=== PATIENT | female | born 1975 | race Caucasian/White ===

== ENCOUNTER 2016-04-08 21:11 | Emergency (ER) | payer OTHER ==
[2016-04-08 21:38] LABS: MANUAL DIFF NEEDED? NO; URINE CULTURE NEEDED? NO; URINE MICRO REVIEW NEEDED? NO; URINE SOURCE CLEAN CATCH
[2016-04-08 21:42] LABS: BASO% 0.7 % (0.0-0.8); EOS# 0.12 X1000 (0.0-0.7); EOS% 1.6 % (0.0-10.0); HEMATOCRIT 41.5 % (37.0-47.0); HEMOGLOBIN 13.4 g/dL (12.0-16.0); LYMPH# 2.98 X1000 (1.2-3.4); LYMPH% 38.9 % (20.5-51.1); MCH 25.7 PG (27-31); MCHC 32.3 g/dL (33-37); MCV 79.7 FL (81-99); MONO% 7.8 % (1.7-9.3); MPV 10.2 FL (7.4-10.4); PLT 258 X1000 (130-400); RBC 5.21 XMIL (4.2-5.4)
[2016-04-08 21:43] LABS: BILIRUBIN URINE NEGATIVE (NEGATIVE); BLOOD URINE NEGATIVE (NEGATIVE); COLOR STRAW; GLUCOSE URINE >1000 mg/dL (NEGATIVE); LEUKOCYTES URINE NEGATIVE (NEGATIVE); NITRITE URINE NEGATIVE (NEGATIVE); PROTEIN URINE NEGATIVE (NEGATIVE); SP GRAVITY URINE 1.027; TURBIDITY URINE CLEAR (CLEAR); UR EPITHELIAL CELLS <10 /HPF (<10); URINE BACTERIA NEGATIVE /HPF; URINE RBC <10 /HPF (<10); URINE WBC <10 /HPF (<10); UROBILINOGEN URINE NORMAL (NORMAL)
[2016-04-08 22:05] LABS: UR AMPHETAMINES QUAL NONE DETECTED (NONE DETECT); UR BARBITUATES QUAL NONE DETECTED (NONE DETECT); UR BENZODIAZEPIN QUAL NONE DETECTED (NONE DETECT); UR CANNABINOIDS QUAL NONE DETECTED (NONE DETECT); UR COCAINE QUAL NONE DETECTED (NONE DETECT); UR METHADONE QUAL NONE DETECTED (NONE DETECT); UR OPIATES QUAL NONE DETECTED (NONE DETECT); UR OXYCODONE QUAL NONE DETECTED (NONE DETECT); UR PCP QUAL NONE DETECTED (NONE DETECT)
[2016-04-08 22:19] LABS: AGAP 17; ALBUMIN 3.7 g/dL (3.5-5.0); ALKALINE PHOSPHATASE 118 U/L (32-104); BUN 10 mg/dL (8-22); CHLORIDE 91 mmol/L (98-107); COSMO 291; GOT 29 U/L (10-30); GPT 37 U/L (10-36); POTASSIUM 4.6 mmol/L (3.5-5.1); SODIUM 129 mmol/L (136-145); TCO2 21 mmol/L (25-35); TOTAL PROTEIN 7.4 g/dL (6.3-8.3)
[2016-04-08 22:21] LABS: FREE T4 0.9 ng/dL (0.93-1.70)
[2016-04-08] MEDS ORDERED: HUMULIN R IV ONE (22:21)
[2016-04-08] MEDS ORDERED: NS 1,000 ML IV ONE (22:21)
--- NOTE | 2016-04-08 22:21 | PROVIDER DOCUMENTATION ---
Addendum entered and electronically signed by Tian Aj Scribe 04/10/16 17 :36: Departure - Departure Time of Disposition Order: 17:35 DIAGNOSIS: Poorly controlled diabetes mellitus, Hyperglycemia, Suicidal ideations, Suicidal intent, Homicidal behavior Disposition: [facility] Certified Medical Emergency: Emergent Condition: Stable Referrals: Vin Jones MD [Primary Care Provider] - Original Note: HPI-Psychological Disorder - General Source: patient <Simeon Gomez - Last Filed: 04/09/16 16:35> <Tracie Burrell - Last Filed: 04/09/16 17:22> - General Chief Complaint: Psych Stated Complaint: SI Time Seen by Provider: 04/08/16 21:41 Allergies/Adverse Reactions: Patient Allergies Allergy/AdvReac Type Severity Reaction Status Date / Time Iodinated Contrast Media - Allergy DIZZINESS Verified 04/08/16 21:41 Oral and Home Medications: Metformin HCl [Glumetza] 1,000 mg PO BID 11/30/12 Fluoxetine [Prozac] 60 mg PO DAILY 12/08/14 Levothyroxine [Synthroid] 75 microgm PO DAILY 12/08/14 Amlodipine Besylate [Norvasc] 5 mg PO DAILY 08/28/15 Apixaban [Eliquis] 5 mg PO BID 08/28/15 Atorvastatin Calcium [Lipitor] 20 mg PO DAILY 08/28/15 Ferrous Sulfate 1 tab PO TID 08/28/15 Lisinopril 40 mg PO DAILY 08/28/15 Topiramate [Topamax] 50 mg PO BID 08/28/15 Aripiprazole [Abilify] 2 mg PO DAILY 02/06/16 Insulin Glargine [Lantus] 60 unit SUBQ QHS 02/06/16 - History of Present Illness-Psych Nature of Presenting Problem: Pt is a 40 y/o F c chief complaint of suicidal thoughts with plan and auditory hallucinations x 1 day. Pt has a h/o depression but is not compliant c her anti- depression meds. Pt has a h/o poorly controlled diabetes, constipation, hypertension. On arrival, pt is in no pain or distress. She states that she plans to drive her car into another vehicle to kill herself. (Simeon Gomez) Review of Systems - Adult - REVIEW OF SYSTEMS - ADULT Constitutional: reports: no symptoms reported. denies: chills, fatique Eyes: reports: no symptoms reported. denies: blurred vision, double vision Ears, Nose, Mouth & Throat: reports: no symptoms reported. denies: ear pain, nose pain Cardiovascular: reports: no symptoms reported. denies: chest pain, irregular heart rate Respiratory: reports: no symptoms reported. denies: cough, shortness of breath Gastrointestinal: reports: no symptoms reported. denies: abdominal pain, nausea Genitourinary: reports: no symptoms reported. denies: dysuria, frequent UTI's, hematuria Musculoskeletal: reports: no symptoms reported. denies: bone pain, joint pain Integumentary: reports: no symptoms reported. denies: hives, itching, rash Neurological: reports: no symptoms reported. denies: numbness, paresthesia Psychiatric: reports: depression. denies: anxiety, emotional problems Endocrine: reports: no symptoms reported. denies: cold intolerance, heat intolerance Hematologic/Lymphatic: reports: no symptoms reported. denies: blood clots, low blood count Allergic/Immunologic: reports: no symptoms reported. denies: allergic reactions , food allergy All Other Systems: Reviewed and Negative <Simeon Gomez - Last Filed: 04/09/16 16:35> Past History - Adult - PAST MEDICAL HISTORY-ADULT Review of Records: reports: Old Records Reviewed, Nursing Assessment Review, Medications Reviewed, Social history reviewed & non-contributory. Major Childhood Illnesses: reports: denies history Cardiovascular: reports: blood clots (with PE's), HTN, hyperlipidemia Respiratory: reports: denies history Gastrointestinal: reports: denies history Obstetrical/Gynecological: reports: denies history Genitourinary: reports: denies history Musculoskeletal: reports: denies history Neurological: reports: CVA, headaches/migraines, TIA Psychiatric: reports: depression Endocrine/Immune: reports: anemia, Diabetes Other Conditions: reports: denies history - PRIOR SURGERIES/PROCEDURES Surgical/Procedure History: reports: cholecystectomy, hysterectomy, BTL, C- section - IMMUNIZATION STATUS Childhood Immunizations: See Nurse Assessment Flu Vaccine: See Nurse Assessment - FAMILY HISTORY Family History: reviewed, not pertinent - SOCIAL HISTORY Smoking: denies Substance Use: none/never Alcohol Use Frequency: never Living Situation: family <Simeon Gomez - Last Filed: 04/09/16 16:35> Physical Exam-Psych Focus - Physical Exam-Psych Initial Vital Signs Reviewed: Yes Appearance: appropriate appearance, appropriate insight, neat, no memory impairment, denies illness Neurological: alert, calm, team driver II-XII nml as tested, oriented x 3, responds to pain, depressed affect Behavior/Eye Contact/Speech: cooperative, good eye contact, normal speech Thoughts/Hallucinations: normal thought pattern, no apparent hallucination HENMT: normocephalic/atraumatic, normal ENT inspection, TMs normal, pharynx normal Neck: non-tender, full range of motion, supple, normal inspection Respiratory: chest non-tender, lungs clear, normal breath sounds, no pleuratic chest pain, no respiratory distress, no accessory muscle use Cardiovascular: normal peripheral pulses, regular rate, rhythm, no edema, no gallop, no JVD, no murmur Abdominal Exam: normal bowel sounds, non tender, soft, no organomegaly, no pulsatile mass Lymphatic: no adenopathy Back Exam: normal inspection, no CVA tenderness, no vertebral tenderness Extremity: normal range of motion, non-tender, normal gait, normal inspection, no pedal edema, no calf tenderness, normal capillary refill, pelvis stable Integumentary: normal color, normal turgor, warm/dry <Simeon Gomez - Last Filed: 04/09/16 16:35> Progress - PSYCHIATRIC Medically clear for psych eval and/or transfer to [facility] Yes (Pt's hyperglycemia responded to insulin. She is not in DKA.) - CHANGE OF SHIFT REPORT (ED Provider) Report Given and Care Transferred to:: Dr. Esparza (ER MD) Time of Transfer: 02:12 Items Pending: Other (Waiting placement) Tentative Impression of Patient: Suicidal ideations c plan, Poorly Controlled Diabetes, Hyperglycemia <Simeon Gomez - Last Filed: 04/09/16 16:35> - REASSESSMENT Reassessment #1 Time Reassessed: 17:21 Status: other (Pt is stable w/o complaints. Pr nurse, her WPMZ=[id number]. * units of Humalin R SC given.) <Tracie Burrell - Last Filed: 04/09/16 17:22> - PLAN OF CARE/RESULTS Progress/Plan/Lab Results: Orders Category Date Time Status Finger Stick Blood Sugar (ED) DIRECTED Care 04/09/16 00:10 Active ABG [RESP] Routine Lab 04/08/16 22:45 Completed ACETONE SERUM [CHEM] Stat Lab 04/08/16 21:25 Completed ALCOHOL BLOOD Stat Lab 04/08/16 21:25 Completed CBC WITH ELECTRONIC DIFF [HEME] Stat Lab 04/08/16 21:25 Completed COMPREHENSIVE METABOLIC PANEL [CHEM] Stat Lab 04/08/16 21:25 Completed FREE T4 Stat Lab 04/08/16 21:25 Completed TSH Stat Lab 04/08/16 21:25 Completed URINALYSIS W/POSS RFLX CULT [URINALYSIS] Stat Lab 04/08/16 21:25 Completed URINE DRUG SCREEN Stat Lab 04/08/16 21:25 Completed VITAMIN B12 Stat Lab 04/08/16 21:25 Completed 0.9% Sodium Chloride Inj [Ns] 1,000 ml Med 04/08/16 22:21 Discontinued IV 999 mls/hr 0.9% Sodium Chloride Inj [Ns] 1,000 ml Med 04/09/16 00:21 Active IV 999 mls/hr Ibuprofen [Motrin] Med 04/08/16 23:39 Discontinued 800 mg PO NOW ONE Insulin Human Regular [Humulin R] Med 04/08/16 22:21 Discontinued 10 unit IV NOW ONE Laboratory Tests 04/08/16 04/08/16 04/08/16 21:25 21:25 21:25 WBC RBC Hgb Hct MCV MCH MCHC RDW Std Deviation Plt Count MPV Immature Gran % (Auto) Neut % (Auto) Lymph % (Auto) [place] % (Auto) Eos % (Auto) Baso % (Auto) Immature Gran # (Auto) Neut # (Auto) Lymph # (Auto) [place] # (Auto) Eos # (Auto) Baso # (Auto) Specimen Type Sample Site pH pCO2 pO2 HCO3 Base Excess Oxyhemoglobin ABG O2 Sat (Calculated) ABG O2 Saturation ABG Carboxyhemoglobin ABG Methemoglobin Xander Test A-a O2 Difference Total Hemoglobin Lactate Blood Gas Modality FiO2 % Sodium 129 L Potassium 4.6 Chloride 91 L Carbon Dioxide 21 L Anion Gap 17 BUN 10 Creatinine 1.0 H Estimated GFR/1.73 m2 > 60 BUN/Creatinine Ratio 10 Glucose 693 H* POC Glucose Calculated Osmolality 291 Calcium 9.0 Total Bilirubin 0.40 AST 29 ALT 37 H Alkaline Phosphatase 118 H Total Protein 7.4 Albumin 3.7 Globulin 3.7 Albumin/Globulin Ratio 1.0 Vitamin B12 581 TSH 7.39 H Free T4 0.90 L Urine Source Urine Color Urine Turbidity Urine pH Ur Specific [place] Urine Protein Ur Glucose (Stick) Ur Ketones (Stick) Urine Blood Urine Nitrite Urine Bilirubin Urobilinogen Dipstick Urine Leukocytes Urine WBC (Auto) Urine RBC (Auto) U Epithel Cells (Auto) Urine Bacteria (Auto) Urine Opiates Screen Ur Oxycodone Screen Ur Methadone, Qual Ur Barbiturates Screen Ur Phencyclidine Scrn Ur Amphetamines Screen U Benzodiazepines Scrn Urine Cocaine Screen U Cannabinoids Screen Plasma/Serum Ethyl Alc Acetone Level 04/08/16 04/08/16 04/08/16 21:25 21:25 21:25 WBC 7.66 RBC 5.21 Hgb 13.4 Hct 41.5 MCV 79.7 L MCH 25.7 L MCHC 32.3 L RDW Std Deviation 14.9 H Plt Count 258 MPV 10.2 Immature Gran % (Auto) 0.0 Neut % (Auto) 51.0 Lymph % (Auto) 38.9 [place] % (Auto) 7.8 Eos % (Auto) 1.6 Baso % (Auto) 0.7 Immature Gran # (Auto) 0.00 Neut # (Auto) 3.91 Lymph # (Auto) 2.98 [place] # (Auto) 0.60 H Eos # (Auto) 0.12 Baso # (Auto) 0.05 Specimen Type Sample Site pH pCO2 pO2 HCO3 Base Excess Oxyhemoglobin ABG O2 Sat (Calculated) ABG O2 Saturation ABG Carboxyhemoglobin ABG Methemoglobin Xander Test A-a O2 Difference Total Hemoglobin Lactate Blood Gas Modality FiO2 % Sodium Potassium Chloride Carbon Dioxide Anion Gap BUN Creatinine Estimated GFR/1.73 m2 BUN/Creatinine Ratio Glucose POC Glucose Calculated Osmolality Calcium Total Bilirubin AST ALT Alkaline Phosphatase Total Protein Albumin Globulin Albumin/Globulin Ratio Vitamin B12 TSH Free T4 Urine Source CLEAN CATCH Urine Color STRAW Urine Turbidity CLEAR Urine pH 5.0 Ur Specific [place] 1.027 Urine Protein NEGATIVE Ur Glucose (Stick) >1000 A Ur Ketones (Stick) NEGATIVE Urine Blood NEGATIVE Urine Nitrite NEGATIVE Urine Bilirubin NEGATIVE Urobilinogen Dipstick NORMAL Urine Leukocytes NEGATIVE Urine WBC (Auto) <10 Urine RBC (Auto) <10 U Epithel Cells (Auto) <10 Urine Bacteria (Auto) NEGATIVE Urine Opiates Screen NONE DETECTED Ur Oxycodone Screen NONE DETECTED Ur Methadone, Qual NONE DETECTED Ur Barbiturates Screen NONE DETECTED Ur Phencyclidine Scrn NONE DETECTED Ur Amphetamines Screen NONE DETECTED U Benzodiazepines Scrn NONE DETECTED Urine Cocaine Screen NONE DETECTED U Cannabinoids Screen NONE DETECTED Plasma/Serum Ethyl Alc Acetone Level 04/08/16 04/08/16 04/09/16 21:25 22:45 00:02 WBC RBC Hgb Hct MCV MCH MCHC RDW Std Deviation Plt Count MPV Immature Gran % (Auto) Neut % (Auto) Lymph % (Auto) [place] % (Auto) Eos % (Auto) Baso % (Auto) Immature Gran # (Auto) Neut # (Auto) Lymph # (Auto) [place] # (Auto) Eos # (Auto) Baso # (Auto) Specimen Type ARTERIAL Sample Site R RADIAL pH 7.43 pCO2 42 pO2 62 HCO3 27.2 H Base Excess 3.2 H Oxyhemoglobin 89.5 L* ABG O2 Sat (Calculated) 17.4 ABG O2 Saturation 92.8 L ABG Carboxyhemoglobin 2.30 ABG Methemoglobin 1.3 Xander Test YES A-a O2 Difference 35.0 Total Hemoglobin 13.8 Lactate 2.10 Blood Gas Modality ROOM AIR FiO2 % 21.0 Sodium Potassium Chloride Carbon Dioxide Anion Gap BUN Creatinine Estimated GFR/1.73 m2 BUN/Creatinine Ratio Glucose POC Glucose 297 H Calculated Osmolality Calcium Total Bilirubin AST ALT Alkaline Phosphatase Total Protein Albumin Globulin Albumin/Globulin Ratio Vitamin B12 TSH Free T4 Urine Source Urine Color Urine Turbidity Urine pH Ur Specific [place] Urine Protein Ur Glucose (Stick) Ur Ketones (Stick) Urine Blood Urine Nitrite Urine Bilirubin Urobilinogen Dipstick Urine Leukocytes Urine WBC (Auto) Urine RBC (Auto) U Epithel Cells (Auto) Urine Bacteria (Auto) Urine Opiates Screen Ur Oxycodone Screen Ur Methadone, Qual Ur Barbiturates Screen Ur Phencyclidine Scrn Ur Amphetamines Screen U Benzodiazepines Scrn Urine Cocaine Screen U Cannabinoids Screen Plasma/Serum Ethyl Alc Acetone Level NEGATIVE Vital Signs - 24 hr 04/08/16 21:14 Temperature 98.3 F Pulse Rate 104 H Respiratory 18 Rate Blood Pressure 154/65 O2 Sat by Pulse 99 Oximetry (Simeon Gomez) Orders Category Date Time Status Finger Stick Blood Sugar (ED) DIRECTED Care 04/09/16 00:10 Active Diabetic Diet Diet 04/09/16 06:49 Completed Diabetic Diet Diet 04/09/16 07:48 Completed Diabetic Diet Diet 04/09/16 11:23 Active ABG [RESP] Routine Lab 04/08/16 22:45 Completed ACETONE SERUM [CHEM] Stat Lab 04/08/16 21:25 Completed ALCOHOL BLOOD Stat Lab 04/08/16 21:25 Completed CBC WITH ELECTRONIC DIFF [HEME] Stat Lab 04/08/16 21:25 Completed COMPREHENSIVE METABOLIC PANEL [CHEM] Stat Lab 04/08/16 21:25 Completed FREE T4 Stat Lab 04/08/16 21:25 Completed TSH Stat Lab 04/08/16 21:25 Completed URINALYSIS W/POSS RFLX CULT [URINALYSIS] Stat Lab 04/08/16 21:25 Completed URINE DRUG SCREEN Stat Lab 04/08/16 21:25 Completed VITAMIN B12 Stat Lab 04/08/16 21:25 Completed 0.9% Sodium Chloride Inj [Ns] 1,000 ml Med 04/08/16 22:21 Discontinued IV 999 mls/hr 0.9% Sodium Chloride Inj [Ns] 1,000 ml Med 04/09/16 00:21 Discontinued IV 999 mls/hr Ibuprofen [Motrin] Med 04/08/16 23:39 Discontinued 800 mg PO NOW ONE Insulin Human Regular [Humulin R] Med 04/08/16 22:21 Discontinued 10 unit IV NOW ONE Insulin Human Regular [Humulin R] Med 04/09/16 17:19 Discontinued 8 unit SUBQ NOW ONE Vital Signs Temp Pulse Resp BP Pulse Ox 04/09/16 16:48 81 18 133/78 98 04/09/16 11:06 75 18 131/66 99 04/09/16 05:45 98 F 68 14 133/71 98 04/09/16 01:42 98.6 F 76 14 119/65 96 04/08/16 21:14 98.3 F 104 H 18 154/65 99 Iodinated Contrast Media - Oral and Allergy (Verified 04/08/16 21:41) DIZZINESS Metformin HCl [Glumetza] 1,000 mg PO BID 11/30/12 Fluoxetine [Prozac] 60 mg PO DAILY 12/08/14 Levothyroxine [Synthroid] 75 microgm PO DAILY 12/08/14 Amlodipine Besylate [Norvasc] 5 mg PO DAILY 08/28/15 Apixaban [Eliquis] 5 mg PO BID 08/28/15 Atorvastatin Calcium [Lipitor] 20 mg PO DAILY 08/28/15 Ferrous Sulfate 1 tab PO TID 08/28/15 Lisinopril 40 mg PO DAILY 08/28/15 Topiramate [Topamax] 50 mg PO BID 08/28/15 Aripiprazole [Abilify] 2 mg PO DAILY 02/06/16 Insulin Glargine [Lantus] 60 unit SUBQ QHS 02/06/16 Hydrocortisone Supp [Anusol-Hc Supp] 25 mg [place] BID #20 supp 04/02/16 Dietary Diet Diabetic Diet Start SunApr 09 112 Laboratory 04/09/16 04/09/16 04/08/16 06:42 00:02 22:45 WBC RBC Hgb Hct MCV MCH MCHC RDW Std Deviation Plt Count MPV Immature Gran % (Auto) Neut % (Auto) Lymph % (Auto) [place] % (Auto) Eos % (Auto) Baso % (Auto) Immature Gran # (Auto) Neut # (Auto) Lymph # (Auto) [place] # (Auto) Eos # (Auto) Baso # (Auto) Specimen Type ARTERIAL Sample Site R RADIAL pH 7.43 pCO2 42 pO2 62 HCO3 27.2 H Base Excess 3.2 H Oxyhemoglobin 89.5 L* ABG O2 Sat (Calculated) 17.4 ABG O2 Saturation 92.8 L ABG Carboxyhemoglobin 2.30 ABG Methemoglobin 1.3 Xander Test YES A-a O2 Difference 35.0 Total Hemoglobin 13.8 Lactate 2.10 Blood Gas Modality ROOM AIR FiO2 % 21.0 Sodium Potassium Chloride Carbon Dioxide Anion Gap BUN Creatinine Estimated GFR/1.73 m2 BUN/Creatinine Ratio Glucose POC Glucose 274 H 297 H Calculated Osmolality Calcium Total Bilirubin AST ALT Alkaline Phosphatase Total Protein Albumin Globulin Albumin/Globulin Ratio Vitamin B12 TSH Free T4 Urine Source Urine Color Urine Turbidity Urine pH Ur Specific [place] Urine Protein Ur Glucose (Stick) Ur Ketones (Stick) Urine Blood Urine Nitrite Urine Bilirubin Urobilinogen Dipstick Urine Leukocytes Urine WBC (Auto) Urine RBC (Auto) U Epithel Cells (Auto) Urine Bacteria (Auto) Urine Opiates Screen Ur Oxycodone Screen Ur Methadone, Qual Ur Barbiturates Screen Ur Phencyclidine Scrn Ur Amphetamines Screen U Benzodiazepines Scrn Urine Cocaine Screen U Cannabinoids Screen Plasma/Serum Ethyl Alc Acetone Level 04/08/16 04/08/16 04/08/16 21:25 21:25 21:25 WBC RBC Hgb Hct MCV MCH MCHC RDW Std Deviation Plt Count MPV Immature Gran % (Auto) Neut % (Auto) Lymph % (Auto) [place] % (Auto) Eos % (Auto) Baso % (Auto) Immature Gran # (Auto) Neut # (Auto) Lymph # (Auto) [place] # (Auto) Eos # (Auto) Baso # (Auto) Specimen Type Sample Site pH pCO2 pO2 HCO3 Base Excess Oxyhemoglobin ABG O2 Sat (Calculated) ABG O2 Saturation ABG Carboxyhemoglobin ABG Methemoglobin Xander Test A-a O2 Difference Total Hemoglobin Lactate Blood Gas Modality FiO2 % Sodium Potassium Chloride Carbon Dioxide Anion Gap BUN Creatinine Estimated GFR/1.73 m2 BUN/Creatinine Ratio Glucose POC Glucose Calculated Osmolality Calcium Total Bilirubin AST ALT Alkaline Phosphatase Total Protein Albumin Globulin Albumin/Globulin Ratio Vitamin B12 TSH Free T4 Urine Source CLEAN CATCH Urine Color STRAW Urine Turbidity CLEAR Urine pH 5.0 Ur Specific [place] 1.027 Urine Protein NEGATIVE Ur Glucose (Stick) >1000 A Ur Ketones (Stick) NEGATIVE Urine Blood NEGATIVE Urine Nitrite NEGATIVE Urine Bilirubin NEGATIVE Urobilinogen Dipstick NORMAL Urine Leukocytes NEGATIVE Urine WBC (Auto) <10 Urine RBC (Auto) <10 U Epithel Cells (Auto) <10 Urine Bacteria (Auto) NEGATIVE Urine Opiates Screen NONE DETECTED Ur Oxycodone Screen NONE DETECTED Ur Methadone, Qual NONE DETECTED Ur Barbiturates Screen NONE DETECTED Ur Phencyclidine Scrn NONE DETECTED Ur Amphetamines Screen NONE DETECTED U Benzodiazepines Scrn NONE DETECTED Urine Cocaine Screen NONE DETECTED U Cannabinoids Screen NONE DETECTED Plasma/Serum Ethyl Alc Acetone Level NEGATIVE 04/08/16 04/08/16 04/08/16 21:25 21:25 21:25 WBC 7.66 RBC 5.21 Hgb 13.4 Hct 41.5 MCV 79.7 L MCH 25.7 L MCHC 32.3 L RDW Std Deviation 14.9 H Plt Count 258 MPV 10.2 Immature Gran % (Auto) 0.0 Neut % (Auto) 51.0 Lymph % (Auto) 38.9 [place] % (Auto) 7.8 Eos % (Auto) 1.6 Baso % (Auto) 0.7 Immature Gran # (Auto) 0.00 Neut # (Auto) 3.91 Lymph # (Auto) 2.98 [place] # (Auto) 0.60 H Eos # (Auto) 0.12 Baso # (Auto) 0.05 Specimen Type Sample Site pH pCO2 pO2 HCO3 Base Excess Oxyhemoglobin ABG O2 Sat (Calculated) ABG O2 Saturation ABG Carboxyhemoglobin ABG Methemoglobin Xander Test A-a O2 Difference Total Hemoglobin Lactate Blood Gas Modality FiO2 % Sodium Potassium Chloride Carbon Dioxide Anion Gap BUN Creatinine Estimated GFR/1.73 m2 BUN/Creatinine Ratio Glucose POC Glucose Calculated Osmolality Calcium Total Bilirubin AST ALT Alkaline Phosphatase Total Protein Albumin Globulin Albumin/Globulin Ratio Vitamin B12 581 TSH 7.39 H Free T4 0.90 L Urine Source Urine Color Urine Turbidity Urine pH Ur Specific [place] Urine Protein Ur Glucose (Stick) Ur Ketones (Stick) Urine Blood Urine Nitrite Urine Bilirubin Urobilinogen Dipstick Urine Leukocytes Urine WBC (Auto) Urine RBC (Auto) U Epithel Cells (Auto) Urine Bacteria (Auto) Urine Opiates Screen Ur Oxycodone Screen Ur Methadone, Qual Ur Barbiturates Screen Ur Phencyclidine Scrn Ur Amphetamines Screen U Benzodiazepines Scrn Urine Cocaine Screen U Cannabinoids Screen Plasma/Serum Ethyl Alc Acetone Level 04/08/16 21:25 WBC RBC Hgb Hct MCV MCH MCHC RDW Std Deviation Plt Count MPV Immature Gran % (Auto) Neut % (Auto) Lymph % (Auto) [place] % (Auto) Eos % (Auto) Baso % (Auto) Immature Gran # (Auto) Neut # (Auto) Lymph # (Auto) [place] # (Auto) Eos # (Auto) Baso # (Auto) Specimen Type Sample Site pH pCO2 pO2 HCO3 Base Excess Oxyhemoglobin ABG O2 Sat (Calculated) ABG O2 Saturation ABG Carboxyhemoglobin ABG Methemoglobin Xander Test A-a O2 Difference Total Hemoglobin Lactate Blood Gas Modality FiO2 % Sodium 129 L Potassium 4.6 Chloride 91 L Carbon Dioxide 21 L Anion Gap 17 BUN 10 Creatinine 1.0 H Estimated GFR/1.73 m2 > 60 BUN/Creatinine Ratio 10 Glucose 693 H* POC Glucose Calculated Osmolality 291 Calcium 9.0 Total Bilirubin 0.40 AST 29 ALT 37 H Alkaline Phosphatase 118 H Total Protein 7.4 Albumin 3.7 Globulin 3.7 Albumin/Globulin Ratio 1.0 Vitamin B12 TSH Free T4 Urine Source Urine Color Urine Turbidity Urine pH Ur Specific [place] Urine Protein Ur Glucose (Stick) Ur Ketones (Stick) Urine Blood Urine Nitrite Urine Bilirubin Urobilinogen Dipstick Urine Leukocytes Urine WBC (Auto) Urine RBC (Auto) U Epithel Cells (Auto) Urine Bacteria (Auto) Urine Opiates Screen Ur Oxycodone Screen Ur Methadone, Qual Ur Barbiturates Screen Ur Phencyclidine Scrn Ur Amphetamines Screen U Benzodiazepines Scrn Urine Cocaine Screen U Cannabinoids Screen Plasma/Serum Ethyl Alc Acetone Level Laboratory Results - last 24 hr 04/08/16 04/08/16 04/08/16 21:25 21:25 21:25 WBC RBC Hgb Hct MCV MCH MCHC RDW Std Deviation Plt Count MPV Immature Gran % (Auto) Neut % (Auto) Lymph % (Auto) [place] % (Auto) Eos % (Auto) Baso % (Auto) Immature Gran # (Auto) Neut # (Auto) Lymph # (Auto) [place] # (Auto) Eos # (Auto) Baso # (Auto) Specimen Type Sample Site pH pCO2 pO2 HCO3 Base Excess Oxyhemoglobin ABG O2 Sat (Calculated) ABG O2 Saturation ABG Carboxyhemoglobin ABG Methemoglobin Xander Test A-a O2 Difference Total Hemoglobin Lactate Blood Gas Modality FiO2 % Sodium 129 L Potassium 4.6 Chloride 91 L Carbon Dioxide 21 L Anion Gap 17 BUN 10 Creatinine 1.0 H Estimated GFR/1.73 m2 > 60 BUN/Creatinine Ratio 10 Glucose 693 H* POC Glucose Calculated Osmolality 291 Calcium 9.0 Total Bilirubin 0.40 AST 29 ALT 37 H Alkaline Phosphatase 118 H Total Protein 7.4 Albumin 3.7 Globulin 3.7 Albumin/Globulin Ratio 1.0 Vitamin B12 581 TSH 7.39 H Free T4 0.90 L Urine Source Urine Color Urine Turbidity Urine pH Ur Specific [place] Urine Protein Ur Glucose (Stick) Ur Ketones (Stick) Urine Blood Urine Nitrite Urine Bilirubin Urobilinogen Dipstick Urine Leukocytes Urine WBC (Auto) Urine RBC (Auto) U Epithel Cells (Auto) Urine Bacteria (Auto) Urine Opiates Screen Ur Oxycodone Screen Ur Methadone, Qual Ur Barbiturates Screen Ur Phencyclidine Scrn Ur Amphetamines Screen U Benzodiazepines Scrn Urine Cocaine Screen U Cannabinoids Screen Plasma/Serum Ethyl Alc Acetone Level 04/08/16 04/08/16 04/08/16 21:25 21:25 21:25 WBC 7.66 RBC 5.21 Hgb 13.4 Hct 41.5 MCV 79.7 L MCH 25.7 L MCHC 32.3 L RDW Std Deviation 14.9 H Plt Count 258 MPV 10.2 Immature Gran % (Auto) 0.0 Neut % (Auto) 51.0 Lymph % (Auto) 38.9 [place] % (Auto) 7.8 Eos % (Auto) 1.6 Baso % (Auto) 0.7 Immature Gran # (Auto) 0.00 Neut # (Auto) 3.91 Lymph # (Auto) 2.98 [place] # (Auto) 0.60 H Eos # (Auto) 0.12 Baso # (Auto) 0.05 Specimen Type Sample Site pH pCO2 pO2 HCO3 Base Excess Oxyhemoglobin ABG O2 Sat (Calculated) ABG O2 Saturation ABG Carboxyhemoglobin ABG Methemoglobin Xander Test A-a O2 Difference Total Hemoglobin Lactate Blood Gas Modality FiO2 % Sodium Potassium Chloride Carbon Dioxide Anion Gap BUN Creatinine Estimated GFR/1.73 m2 BUN/Creatinine Ratio Glucose POC Glucose Calculated Osmolality Calcium Total Bilirubin AST ALT Alkaline Phosphatase Total Protein Albumin Globulin Albumin/Globulin Ratio Vitamin B12 TSH Free T4 Urine Source CLEAN CATCH Urine Color STRAW Urine Turbidity CLEAR Urine pH 5.0 Ur Specific [place] 1.027 Urine Protein NEGATIVE Ur Glucose (Stick) >1000 A Ur Ketones (Stick) NEGATIVE Urine Blood NEGATIVE Urine Nitrite NEGATIVE Urine Bilirubin NEGATIVE Urobilinogen Dipstick NORMAL Urine Leukocytes NEGATIVE Urine WBC (Auto) <10 Urine RBC (Auto) <10 U Epithel Cells (Auto) <10 Urine Bacteria (Auto) NEGATIVE Urine Opiates Screen NONE DETECTED Ur Oxycodone Screen NONE DETECTED Ur Methadone, Qual NONE DETECTED Ur Barbiturates Screen NONE DETECTED Ur Phencyclidine Scrn NONE DETECTED Ur Amphetamines Screen NONE DETECTED U Benzodiazepines Scrn NONE DETECTED Urine Cocaine Screen NONE DETECTED U Cannabinoids Screen NONE DETECTED Plasma/Serum Ethyl Alc Acetone Level 04/08/16 04/08/16 04/09/16 21:25 22:45 00:02 WBC RBC Hgb Hct MCV MCH MCHC RDW Std Deviation Plt Count MPV Immature Gran % (Auto) Neut % (Auto) Lymph % (Auto) [place] % (Auto) Eos % (Auto) Baso % (Auto) Immature Gran # (Auto) Neut # (Auto) Lymph # (Auto) [place] # (Auto) Eos # (Auto) Baso # (Auto) Specimen Type ARTERIAL Sample Site R RADIAL pH 7.43 pCO2 42 pO2 62 HCO3 27.2 H Base Excess 3.2 H Oxyhemoglobin 89.5 L* ABG O2 Sat (Calculated) 17.4 ABG O2 Saturation 92.8 L ABG Carboxyhemoglobin 2.30 ABG Methemoglobin 1.3 Xander Test YES A-a O2 Difference 35.0 Total Hemoglobin 13.8 Lactate 2.10 Blood Gas Modality ROOM AIR FiO2 % 21.0 Sodium Potassium Chloride Carbon Dioxide Anion Gap BUN Creatinine Estimated GFR/1.73 m2 BUN/Creatinine Ratio Glucose POC Glucose 297 H Calculated Osmolality Calcium Total Bilirubin AST ALT Alkaline Phosphatase Total Protein Albumin Globulin Albumin/Globulin Ratio Vitamin B12 TSH Free T4 Urine Source Urine Color Urine Turbidity Urine pH Ur Specific [place] Urine Protein Ur Glucose (Stick) Ur Ketones (Stick) Urine Blood Urine Nitrite Urine Bilirubin Urobilinogen Dipstick Urine Leukocytes Urine WBC (Auto) Urine RBC (Auto) U Epithel Cells (Auto) Urine Bacteria (Auto) Urine Opiates Screen Ur Oxycodone Screen Ur Methadone, Qual Ur Barbiturates Screen Ur Phencyclidine Scrn Ur Amphetamines Screen U Benzodiazepines Scrn Urine Cocaine Screen U Cannabinoids Screen Plasma/Serum Ethyl Alc Acetone Level NEGATIVE 04/09/16 06:42 WBC RBC Hgb Hct MCV MCH MCHC RDW Std Deviation Plt Count MPV Immature Gran % (Auto) Neut % (Auto) Lymph % (Auto) [place] % (Auto) Eos % (Auto) Baso % (Auto) Immature Gran # (Auto) Neut # (Auto) Lymph # (Auto) [place] # (Auto) Eos # (Auto) Baso # (Auto) Specimen Type Sample Site pH pCO2 pO2 HCO3 Base Excess Oxyhemoglobin ABG O2 Sat (Calculated) ABG O2 Saturation ABG Carboxyhemoglobin ABG Methemoglobin Xander Test A-a O2 Difference Total Hemoglobin Lactate Blood Gas Modality FiO2 % Sodium Potassium Chloride Carbon Dioxide Anion Gap BUN Creatinine Estimated GFR/1.73 m2 BUN/Creatinine Ratio Glucose POC Glucose 274 H Calculated Osmolality Calcium Total Bilirubin AST ALT Alkaline Phosphatase Total Protein Albumin Globulin Albumin/Globulin Ratio Vitamin B12 TSH Free T4 Urine Source Urine Color Urine Turbidity Urine pH Ur Specific [place] Urine Protein Ur Glucose (Stick) Ur Ketones (Stick) Urine Blood Urine Nitrite Urine Bilirubin Urobilinogen Dipstick Urine Leukocytes Urine WBC (Auto) Urine RBC (Auto) U Epithel Cells (Auto) Urine Bacteria (Auto) Urine Opiates Screen Ur Oxycodone Screen Ur Methadone, Qual Ur Barbiturates Screen Ur Phencyclidine Scrn Ur Amphetamines Screen U Benzodiazepines Scrn Urine Cocaine Screen U Cannabinoids Screen Plasma/Serum Ethyl Alc Acetone Level (Tracie Burrell) Departure - Departure Time of Disposition Order: 03:27 Certified Medical Emergency: Emergent <Simeon Gomez - Last Filed: 04/09/16 16:35> <Tracie Burrell - Last Filed: 04/09/16 17:22> - Departure DIAGNOSIS: Poorly controlled diabetes mellitus, Hyperglycemia, Suicidal ideations, Suicidal intent Disposition: [facility] Condition: Stable Referrals: Vin Jones MD [Primary Care Provider] - Attestation - Physician/ Mid-level Attestation Patient care was provided by Mid-level provider (TILLER MAN/PA):: Yes Mid-level provider:: Simeon Gomez Mid-level documentation review:: The Mid-level provider documentation, treatment plan and medical decision making was reviewed by the physician who agrees with all treatment and medical decision making by the P. The physician spent face to face time with patient:: Yes <Simeon Gomez - Last Filed: 04/09/16 16:35> Physician Attestation
[2016-04-08 22:51] LABS: ALLEN TEST YES; BE 3.2 mmoll (-3.0-3.0); BLOOD TYPE ARTERIAL; DRAW SITE R RADIAL; METHB 1.3 % (0.0-1.5); O2(CT) 17.4 mL/dL (15.0-23.0); PCO2(98.6) 42 mmHg (35-45); PO2(98.6) 62 mmHg (60-100); SAMPLE BLOOD; SAO2 92.8 % (95.0-100.0); THB 13.8 g/dL (11.5-17.4); pH(98.6) 7.43 (7.35-7.45)
[2016-04-08 22:52] LABS: MODALITY ROOM AIR
[2016-04-08] MEDS ORDERED: MOTRIN PO ONE (23:39)
[2016-04-09] MEDS ORDERED: NS 1,000 ML IV ONE (00:21)
[2016-04-09] MEDS ORDERED: HUMULIN R SUBQ ONE (17:19)
[2016-04-09] MEDS ORDERED: TYLENOL PO ONE (23:48)
[2016-04-10] MEDS ORDERED: TYLENOL ONE (00:01)
--- NOTE | 2016-04-10 05:54 | EKG Report ---
Test Performed on : 04/09/2016 10:55:05 AM Test Reason : done in ED/No order in [employer] Blood Pressure : / mmHG Vent. Rate : 073 BPM Atrial Rate : 073 BPM P-R Int : 164 ms QRS Dur : 082 ms QT Int : 416 ms P-R-T Axes : 044 028 033 degrees QTc Int : 458 ms Normal sinus rhythm. Normal ECG No previous ECGs available Unconfirmed Result
[2016-04-10] MEDS ORDERED: NORVASC PO SCH (09:00)
[2016-04-10] MEDS ORDERED: PROZAC PO SCH (09:00)
[2016-04-10] MEDS ORDERED: PRINIVIL PO SCH (09:00)
[2016-04-10] MEDS ORDERED: FERROUS SULFATE PO SCH (09:00)
[2016-04-10] MEDS ORDERED: ABILIFY PO SCH (09:00)
[2016-04-10] MEDS: GLUCOPHAGE PO SCH ×2 (09:35→19:36)
[2016-04-10] MEDS: TOPAMAX PO SCH ×2 (09:35→22:05)
[2016-04-10] MEDS: ELIQUIS PO SCH ×2 (09:35→22:05)
[2016-04-10] MEDS ORDERED: PEPCID PO ONE (19:48)
[2016-04-10] MEDS ORDERED: MOTRIN PO ONE (19:48)
[2016-04-10] MEDS ORDERED: LIPITOR PO SCH (21:00)
[2016-04-10 22:21] VITALS: BP 136/78
[2016-04-11] MEDS ORDERED: SYNTHROID PO SCH (07:00)
== END 2016-04-10 22:15 ==
LOC: ED 21:11
DX: E11.65 Type 2 diabetes mellitus with hyperglycemia (principal); R45.851 Suicidal ideations; I10 Essential (primary) hypertension; E78.5 Hyperlipidemia, unspecified; D64.9 Anemia, unspecified; F32.9 Major depressive disorder, single episode, unspecified; Z79.01 Long term (current) use of anticoagulants; Z79.4 Long term (current) use of insulin; Z79.899 Other long term (current) drug therapy; Z86.711 Personal history of pulmonary embolism; Z86.73 Personal history of transient ischemic attack (TIA), and cerebral infarction without residual deficits
CPT/HCPCS: 36415; 80053; 81001; 82009; 82607; 82805; 82948; 84439; 84443; 85025; 93005; 99285; G0480; J7030

== ENCOUNTER 2016-10-02 12:56 | Observation (INO) ==
[2016-10-02] MEDS ORDERED: ASPIRIN PO STA (13:01)
[2016-10-02] MEDS: NITROGLYCERIN SL PRN ×2 (13:01→14:22)
[2016-10-02] MEDS ORDERED: ASPIRIN ONE (13:04)
[2016-10-02] MEDS ORDERED: NITROGLYCERIN ONE (13:04)
--- NOTE | 2016-10-02 13:22 | Diag Imaging Result Doc PS360 ---
CHEST-1 VIEW - 10/02/2016 INDICATION: dyspnea TECHNIQUE: COMPARISON: 03/20/2016 FINDINGS: The lungs are normally expanded and clear. Heart size and mediastinal contours are normal. No pneumothorax or pleural effusion. IMPRESSION: Negative exam. Electronically signed by Panda Melo 10/02/2016 1:20 PM
[2016-10-02 13:24] LABS: MANUAL DIFF NEEDED? NO
[2016-10-02 13:27] LABS: BASO% 0.3 % (0.0-0.8); EOS# 0.12 X1000 (0.0-0.7); EOS% 0.9 % (0.0-10.0); HEMOGLOBIN 15.3 g/dL (12.0-16.0); IMM GRAN# 0.04 X1000 (0.0-0.04); IMM GRAN% 0.3 % (0.0-0.5); LYMPH# 3.09 X1000 (1.2-3.4); LYMPH% 23.3 % (20.5-51.1); MCH 27.1 PG (27-31); MCHC 34.8 g/dL (33-37); MONO# 0.85 X1000 (0.11-0.59); MONO% 6.4 % (1.7-9.3); MPV 10.5 FL (7.4-10.4); NEUT% 68.8 % (42.2-75.2); PLT 324 X1000 (130-400); RBC 5.64 XMIL (4.2-5.4)
[2016-10-02 13:34] LABS: INR 1.03; PROTIME 10.8 Seconds (9.2-11.7); PTT 26.4 Seconds (22.0-36.0)
[2016-10-02 13:56] LABS: AGAP 13; ALBUMIN 4.1 g/dL (3.5-5.0); ALKALINE PHOSPHATASE 135 U/L (32-104); BUN 10 mg/dL (8-22); CALCIUM 9.4 mg/dL (8.8-10.2); CHLORIDE 91 mmol/L (98-107); CK PROFILE 32 U/L (24-173); COSMO 277; GOT 29 U/L (10-30); GPT 45 U/L (10-36); MAGNESIUM 1.8 mg/dL (1.5-2.7); SODIUM 130 mmol/L (136-145); TCO2 26 mmol/L (25-35); TOTAL BILIRUBIN 0.57 mg/dL (0.20-1.00); TOTAL PROTEIN 8.1 g/dL (6.3-8.3)
[2016-10-02] MEDS ORDERED: HUMULIN R IV ONE (13:58)
[2016-10-02] MEDS ORDERED: NS 1,000 ML IV ONE (13:58)
[2016-10-02 15:27] LABS: URINE MICRO REVIEW NEEDED? NO; URINE SOURCE CLEAN CATCH
[2016-10-02 15:33] LABS: BILIRUBIN URINE NEGATIVE (NEGATIVE); BLOOD URINE NEGATIVE (NEGATIVE); COLOR YELLOW; GLUCOSE URINE >1000 mg/dL (NEGATIVE); LEUKOCYTES URINE SMALL (NEGATIVE); NITRITE URINE NEGATIVE (NEGATIVE); PH URINE 5.5; PROTEIN URINE NEGATIVE (NEGATIVE); SP GRAVITY URINE 1.038; TURBIDITY URINE CLEAR (CLEAR); UROBILINOGEN URINE NORMAL (NORMAL)
[2016-10-02 15:34] LABS: UR EPITHELIAL CELLS <10 /HPF (<10); URINE BACTERIA 1+ /HPF; URINE CULTURE NEEDED? YES; URINE RBC <10 /HPF (<10)
--- NOTE | 2016-10-02 15:35 | EKG Report ---
Test Performed on : 10/02/2016 12:56:20 PM Test Reason : Chest Pain Blood Pressure : / mmHG Vent. Rate : 086 BPM Atrial Rate : 086 BPM P-R Int : 162 ms QRS Dur : 086 ms QT Int : 398 ms P-R-T Axes : 028 019 028 degrees QTc Int : 476 ms Normal sinus rhythm. Normal ECG When compared with ECG of 09-APR-2016 10:55, No significant change was found Unconfirmed Result
[2016-10-02 15:42] LABS: UR AMPHETAMINES QUAL NONE DETECTED (NONE DETECT); UR BARBITUATES QUAL NONE DETECTED (NONE DETECT); UR BENZODIAZEPIN QUAL NONE DETECTED (NONE DETECT); UR CANNABINOIDS QUAL NONE DETECTED (NONE DETECT); UR COCAINE QUAL NONE DETECTED (NONE DETECT); UR METHADONE QUAL NONE DETECTED (NONE DETECT); UR OPIATES QUAL NONE DETECTED (NONE DETECT); UR OXYCODONE QUAL NONE DETECTED (NONE DETECT); UR PCP QUAL NONE DETECTED (NONE DETECT)
--- NOTE | 2016-10-02 16:29 | Diag Imaging Result Doc PS360 ---
EXAM: ABDOMEN/PELVIS W/O CONTRAST HISTORY: pain TECHNIQUE: COMPARISON: 08/31/2010 FINDINGS: The gallbladder has been removed. There is fatty infiltration of the liver. The spleen is mildly prominent measuring just over 13 cm. Normal noncontrasted pancreas. Normal adrenal glands. No renal stones. No hydronephrosis. Normal aorta. No bowel obstruction. Normal appendix. No abscess. There are bilateral ovarian cysts. The largest arises from the left ovary measuring 4.2 cm. There is a 2.1 cm right ovarian cyst. Uterus is been removed. Urinary bladder is moderately distended. There are small mesenteric lymph nodes. IMPRESSION: 1.Cholecystectomy 2.Fatty infiltration of the liver 3.Mildly prominent spleen 4.Bilateral ovarian cysts 5.Hysterectomy Electronically signed by Nam Roman 10/02/2016 4:27 PM
[2016-10-02] MEDS ORDERED: NORCO-5 PO PRN (17:27)
[2016-10-02] MEDS ORDERED: ZOFRAN IV PRN (17:28)
--- NOTE | 2016-10-02 17:47 | PROVIDER DOCUMENTATION ---
This chart was entered by Tian jA Scribe, acting as scribe for Kelechi Jacobs MD. HPI-General Adult - General Chief Complaint: Chest Pain Stated Complaint: Abdominal Pain Time Seen by Provider: 10/02/16 13:00 Source: patient Allergies/Adverse Reactions: Patient Allergies Allergy/AdvReac Type Severity Reaction Status Date / Time Iodinated Contrast Media - Allergy DIZZINESS Verified 09/16/16 05:03 Oral and Home Medications: Home Medication List Medication Instructions Recorded Confirmed Last Taken Type Metformin HCl [Glumetza] 1,000 mg PO BID 11/30/12 10/02/16 10/02/16 07:00 History Levothyroxine [Synthroid] 75 microgm PO DAILY 12/08/14 10/02/16 10/02/16 07:00 History Amlodipine Besylate [Norvasc] 5 mg PO DAILY 08/28/15 10/02/16 10/02/16 08:00 History Atorvastatin Calcium [Lipitor] 20 mg PO DAILY 08/28/15 10/02/16 10/01/16 20:00 History Ferrous Sulfate 1 tab PO TID 08/28/15 10/02/16 10/02/16 07:00 History Lisinopril 40 mg PO DAILY 08/28/15 10/02/16 10/02/16 07:00 History Topiramate [Topamax] 50 mg PO BID 08/28/15 10/02/16 10/02/16 07:00 History Aripiprazole [Abilify] 15 mg PO DAILY 02/06/16 10/02/16 10/02/16 07:00 History Insulin Glargine [Lantus] 70 unit SUBQ QHS 02/06/16 10/02/16 10/01/16 20:00 History Dabigatran Etexilate Mesylate 150 mg PO QAM 09/16/16 10/02/16 10/02/16 07:00 History [Pradaxa] Escitalopram [Lexapro] 20 mg PO DAILY 09/16/16 10/02/16 10/02/16 07:00 History Gabapentin 600 mg PO QHS 09/16/16 10/02/16 10/01/16 20:00 History Hydrocodone/APAP 5 mg/325 mg 1 each PO Q6H PRN PRN #10 tablet 09/16/16 10/02/16 Unknown Rx [[place]-5] Olanzapine 10 mg PO QAM 09/16/16 10/02/16 10/02/16 07:00 History - History of Present Illness -Gen Adult Nature of Presenting Problems: patient is a 40 y/o F that presents to the ER via EMS with left sided chest pain that radiates to arm, back, and epigastric area. Pain is sharp. reports shortness of breath. Denies v/d. patient pain is wore with movement and inspiration Location of Pain/Injury: reports: chest (left sided) Pain Radiation: reports: arm(s) (left), back, epigastric Quality of Pain: reports: sharp Severity: reports: mild, moderate Onset/Duration: reports: gradual, this morning Timing: reports: still present, constant Context/Activities at Onset: reports: none Modifying Factors: worse with: breathing, movement Associated Symptoms: reports: arm pain, back/neck pain, chest pain, shortness of breath, pain with inspiration. denies: diarrhea, dizziness, fever/chills, genitourinary problems, nausea, vomiting Similar Symptoms Previously?: No Recently seen or treated by another doctor?: No Review of Systems - Adult - REVIEW OF SYSTEMS - ADULT Constitutional: denies: chills, fever Eyes: reports: no symptoms reported Ears, Nose, Mouth & Throat: reports: no symptoms reported Cardiovascular: reports: chest pain. denies: orthopnea, palpitations, syncope Respiratory: reports: pleurisy, shortness of breath. denies: cough Gastrointestinal: reports: abdominal pain. denies: diarrhea, nausea, vomiting Genitourinary: reports: no symptoms reported Musculoskeletal: reports: back pain. denies: joint pain, neck pain Integumentary: reports: no symptoms reported Neurological: reports: no symptoms reported Psychiatric: reports: no symptoms reported Endocrine: reports: no symptoms reported Hematologic/Lymphatic: reports: no symptoms reported Allergic/Immunologic: reports: no symptoms reported All Other Systems: Reviewed and Negative Past History - Adult - PAST MEDICAL HISTORY-ADULT Review of Records: reports: Old Records Reviewed, Nursing Assessment Review, Medications Reviewed Major Childhood Illnesses: reports: denies history Cardiovascular: reports: blood clots (with PE's), HTN, hyperlipidemia Respiratory: reports: denies history Gastrointestinal: reports: denies history Obstetrical/Gynecological: reports: denies history Genitourinary: reports: denies history Musculoskeletal: reports: denies history Neurological: reports: CVA, headaches/migraines, TIA Psychiatric: reports: depression Endocrine/Immune: reports: anemia, Diabetes Other Conditions: reports: denies history - PRIOR SURGERIES/PROCEDURES Surgical/Procedure History: reports: cholecystectomy, hysterectomy, BTL, C- section - IMMUNIZATION STATUS Childhood Immunizations: See Nurse Assessment Flu Vaccine: See Nurse Assessment - FAMILY HISTORY Family History: reviewed, not pertinent - SOCIAL HISTORY Smoking: non-smoker Living Situation: family Physical Exam-General - PHYSICAL EXAM-ADULT Initial Vital Signs Reviewed: Yes - CONSTITUTIONAL General Appearance: alert, mild distress, anxious - EYES Eyes: PERRL/EOMI, pink conjunctivae - HEAD, EARS, NOSE, MOUTH & THROAT HENMT: normocephalic/atraumatic, moist mucous membranes, normal ENT inspection - NECK Neck: full range of motion, normal inspection - RESPIRATORY Respiratory: lungs clear, no respiratory distress, no accessory muscle use, pain on inspiration - CARDIOVASCULAR Cardiovascular: regular rate, rhythm, no edema - GASTROINTESTINAL (ABDOMEN) Abdominal Exam: normal bowel sounds, non tender, soft, no organomegaly, no pulsatile mass - MUSCULOSKELETAL Back Exam: no CVA tenderness, no vertebral tenderness Extremity: normal range of motion, normal inspection, no pedal edema - SKIN Integumentary: normal color, warm/dry - 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 as tested, no motor/sensory deficits - PSYCHIATRIC Psych/Mental Status: oriented x 3, anxious Progress - PLAN OF CARE/RESULTS Progress/Plan/Lab Results: Vital Signs - 8 hr 10/02/16 13:05 Temperature 98.3 F Pulse Rate 89 Respiratory Rate 18 Blood Pressure 159/114 O2 Sat by Pulse Oximetry 98 Orders Category Date Time Status Cardiac Monitoring DIRECTED Care 10/02/16 13:01 Active Saline Loc NOW Care 10/02/16 13:01 Active CHEST-1 VIEW [RAD] Stat Exams 10/02/16 13:02 Ordered CBC WITH ELECTRONIC DIFF [HEME] Stat Lab 10/02/16 13:05 Ordered CK PROFILE [SP CHEM] Stat Lab 10/02/16 13:05 Ordered COMPREHENSIVE METABOLIC PANEL [CHEM] Stat Lab 10/02/16 13:05 Ordered MAGNESIUM [CHEM] Stat Lab 10/02/16 13:05 Ordered PRO B-NATRIURETIC PEPTIDE Stat Lab 10/02/16 13:05 Ordered PROTIME WITH INR [COAG] Stat Lab 10/02/16 13:05 Ordered PTT [COAG] Stat Lab 10/02/16 13:05 Ordered TROPONIN T Stat Lab 10/02/16 13:05 Ordered Aspirin Med 10/02/16 13:04 Discontinued 325 mg .ROUTE .STK-MED ONE Aspirin Med 10/02/16 13:01 Discontinued 325 mg PO STAT STA Nitroglycerin Sl [Nitroglycerin] Med 10/02/16 13:04 Discontinued 0.4 mg .ROUTE .STK-MED ONE EKG [EKG] Stat Ther 10/02/16 13:01 Ordered Vital Signs Temp Pulse Resp BP Pulse Ox 10/02/16 13:26 82 13 142/93 97 10/02/16 13:05 98.3 F 89 18 159/114 98 Iodinated Contrast Media - Oral and Allergy (Verified 09/16/16 05:03) DIZZINESS Metformin HCl [Glumetza] 1,000 mg PO BID 11/30/12 Levothyroxine [Synthroid] 75 microgm PO DAILY 12/08/14 Amlodipine Besylate [Norvasc] 5 mg PO DAILY 08/28/15 Atorvastatin Calcium [Lipitor] 20 mg PO DAILY 08/28/15 Ferrous Sulfate 1 tab PO TID 08/28/15 Lisinopril 40 mg PO DAILY 08/28/15 Topiramate [Topamax] 50 mg PO BID 08/28/15 Aripiprazole [Abilify] 15 mg PO DAILY 02/06/16 Insulin Glargine [Lantus] 70 unit SUBQ QHS 02/06/16 Dabigatran Etexilate Mesylate [Pradaxa] 150 mg PO QAM 09/16/16 Escitalopram [Lexapro] 20 mg PO DAILY 09/16/16 Gabapentin 600 mg PO QHS 09/16/16 Hydrocodone/APAP 5 mg/325 mg [[place]-5] 1 each PO Q6H PRN PRN #10 tablet Olanzapine 10 mg PO QAM 09/16/16 Laboratory 10/02/16 10/02/16 10/02/16 13:04 12:59 12:59 WBC RBC Hgb Hct MCV MCH MCHC RDW Std Deviation Plt Count MPV Immature Gran % (Auto) Neut % (Auto) Lymph % (Auto) [place] % (Auto) Eos % (Auto) Baso % (Auto) Immature Gran # (Auto) Neut # (Auto) Lymph # (Auto) [place] # (Auto) Eos # (Auto) Baso # (Auto) PT 10.8 INR 1.03 PTT (Actin FS) 26.4 Sodium Potassium Chloride Carbon Dioxide Anion Gap BUN Creatinine Estimated GFR/1.73 m2 BUN/Creatinine Ratio Glucose POC Glucose 347 H Calculated Osmolality Calcium Magnesium Total Bilirubin AST ALT Alkaline Phosphatase Creatine Kinase Troponin T < 0.010 Dxa-Y-Mtaofekzoid Pept Total Protein Albumin Globulin Albumin/Globulin Ratio 10/02/16 10/02/16 10/02/16 12:59 12:59 12:59 WBC 13.29 H RBC 5.64 H Hgb 15.3 Hct 44.0 MCV 78.0 L MCH 27.1 MCHC 34.8 RDW Std Deviation 13.4 Plt Count 324 MPV 10.5 H Immature Gran % (Auto) 0.3 Neut % (Auto) 68.8 Lymph % (Auto) 23.3 [place] % (Auto) 6.4 Eos % (Auto) 0.9 Baso % (Auto) 0.3 Immature Gran # (Auto) 0.04 Neut # (Auto) 9.15 H Lymph # (Auto) 3.09 [place] # (Auto) 0.85 H Eos # (Auto) 0.12 Baso # (Auto) 0.04 PT INR PTT (Actin FS) Sodium 130 L Potassium 4.0 Chloride 91 L Carbon Dioxide 26 Anion Gap 13 BUN 10 Creatinine 0.9 Estimated GFR/1.73 m2 > 60 BUN/Creatinine Ratio 11 Glucose 409 H* POC Glucose Calculated Osmolality 277 Calcium 9.4 Magnesium 1.8 Total Bilirubin 0.57 AST 29 ALT 45 H Alkaline Phosphatase 135 H Creatine Kinase 32 Troponin T Cov-I-Eihrdheqlxx Pept 9 Total Protein 8.1 Albumin 4.1 Globulin 4.0 Albumin/Globulin Ratio 1.0 pt will be d/c harjinder f/u with pcp, pt was clinically stable 1511-patient didn't want to be d/c home, wants to be admitted for pain control but doesn't pain meds, hospitalist will be paged spoke with Zenobia [facility] with hospitalist, additional orders placed Result Diagrams: 10/02/16 12:59 10/02/16 12:59 - EKG 1 Time of EKG reading by physician:: 12:56 EKG Read and Signed by:: Kelechi Jacobs EKG Interpretation (*Must complete 3 of following elements*): Normal Rate: 86 Rhythm: NSR [place]: normal QRS: normal DC Interval: normal ST Wave: normal - XRAY 1 XRAY Study: Chest Impression: Normal XRAY Interpretation: negative - CT/MRI 1 CT Study: Abdomen, Pelvis Impression: Abnormal CT Results: fatty infiltr liver,prominent spleen, ovarian cysts, hysterectomy Departure - Departure Date of Disposition Decision: 10/02/16 Time of Disposition Decision: 14:05 DIAGNOSIS: Pleurisy, Uncontrolled type 2 diabetes mellitus, Hyperglycemia due to type 2 diabetes mellitus Disposition: HOME 01 Certified Medical Emergency: Emergent Condition: Stable Additional Freetext Instructions: ED Follow Up Instructions: You have been treated by a care provider in the Emergency Department. These instructions are being provided to you so you can have an understanding of how to care for yourself upon discharge. Upon discharge from the Emergency Department, you are responsible for making arrangements for follow-up care by a physician of your choice. Take all prescribed medications as directed. Return to the Emergency Department immediately for any new or worsening symptoms. You may call the Physician Referral phone number at [phone] to obtain a list of Physicians who are taking new patients. Referrals and Follow-Ups: Vin Jones MD [Primary Care Provider] - Call for Appoint. 1-2days Discharge Education: Pleurisy, [id number] - Critical Care Note This patient required my direct & personal management of CC.: No Attestation - Physician/ MARIA A Attestation The physician spent face to face time with patient:: Yes Advanced Practice Provider documentation review:: The physician spent face to face time with this patient and agrees with all MLP documentation, treatment, and medical decision making by the MLP. See provider notes for further information. This chart was documented by the indicated scribe, (Tian Aj, [place]) and accurately reflects the services I performed and decisions made by , Kelechi Jacobs MD, as attested by the provider's signature.
[2016-10-02] MEDS: NS 1,000 ML IV SCH ×2 (18:39→21:35)
[2016-10-02] MEDS: ROCEPHIN 1 GM/NS 1 GM/50 ML IVPB IV SCH (18:39)
--- NOTE | 2016-10-02 18:55 | HISTORY AND PHYSICAL ---
PRIMARY CARE PROVIDER: Dr. Vin Jones CHIEF COMPLAINT: Abdominal pain. HISTORY OF PRESENT ILLNESS: Ms. Tao is a 40-year-old female who is in no acute distress with a medical history of recent diagnosis in April of bipolar and schizophrenia where she hears voices. Also history of diabetes mellitus uncontrolled, hypertension , hypothyroidism, PE, DVT in 2010 that she takes Pradaxa for and also history of CVA in 2011. She states that for 2 days now she has had some lower abdominal cramping and stabbing. She denies any fever or chills. Started having some nausea, vomiting yesterday with emesis color of yellow. Her last bowel movement was this morning around 8 a.m. which was soft and brown and her last food intake was yesterday. Workup revealed she has a white blood cell count of 1,3 sodium is a little low at 130. Glucose was at 409 on admit. She did have some complaints of chest pain. The cardiac enzymes are negative. EKG is normal. Her lipase was normal. Urine drug screen negative and she may have a urinary tract infection but has no complaints with it. She had an abdominal pelvic CT which showed fatty liver, bilateral ovarian cyst but no significant findings. We will admit to the medical floor and treat her high glucose levels and follow along. PAST MEDICAL HISTORY: 1. Diabetes mellitus type 2 insulin dependent. 2. Hypertension. 3. PE and DVT in 2010. Uses Pradaxa. 4. Hypothyroidism. 5. Depression. 6. 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 7. Migraines. 8. April 2016 diagnosed bipolar and schizophrenia. States she hears voices. SURGICAL HISTORY: She has had a partial hysterectomy, section. Tonsillectomy and cholecystectomy. SOCIAL HISTORY: Denies alcohol, tobacco, or illicit drug use. She lives at home with her 18- year-old son. FAMILY HISTORY: Positive for diabetes mellitus, hypertension, coronary artery disease and DVTs. ALLERGIES: Oral contrast. HOME MEDICATIONS: Norvasc 5 mg p.o. daily. Abilify 15 mg p.o. daily. Lipitor 20 mg p.o. daily. Pradaxa 150 mg p.o. daily, Lexapro 20 mg p.o. daily. Ferrous sulfate 325 mg p.o. t.i.d., gabapentin 600 mg p.o. nightly, [place] 5 mg 1 tab p.o. q.6 hours p.r.n., Lantus 70 units subcutaneous nightly. Synthroid 75 mcg p.o. daily, lisinopril 40 mg p.o. daily. Metformin 1000 mg p.o. twice daily. Olanzapine 10 mg p.o. daily. Topamax 50 mg p.o. twice daily. REVIEW OF SYSTEMS: Fourteen point review of systems were complete and all were negative except for those mentioned above in the HPI. PHYSICAL EXAMINATION: VITAL SIGNS: Temperature is 98.3 degrees, heart rate 86, respiratory rate 18, blood pressure 133/76, saturation 98% on room air. GENERAL: Ms. Wilson Tao is a 40-year-old female. She is in no acute distress and is able to answer questions appropriately. HEENT: Atraumatic, normocephalic. Pupils equal, round, reactive to light. Extraocular movements intact. Mucous membranes are dry. CARDIOVASCULAR: S1, S2. Regular rate and rhythm. No rubs, gallops, murmurs. PULMONARY: Clear to auscultation. Bilateral breath sounds. No accessory muscle use or work of breathing noted. GASTROINTESTINAL: Abdomen soft. Hyperactive bowel sounds. Tenderness in the left upper to lower quadrant with palpation. EXTREMITIES: No edema noted, +2 dorsalis and radial pulses. LABORATORY DATA: White blood cells 13,000, hemoglobin 15, hematocrit 44, platelet count 324,000. INR 1.03. PTT is 26.4. Sodium 130. Potassium 4.0, BUN 10. Creatinine 0.9, glucose 409. Calcium 9.4, magnesium 1.8. Total bilirubin 0.57, AST 29, ALT 45, CK 32. Troponin is less than 0.01. Lipase 14. Urinalysis: Glucose greater than 1000. Ketones 20, small leukocytes 10-20 white blood cells, 1+ bacteria. IMAGING: Chest x-ray: Negative exam. Abdominal pelvic CT: Cholecystectomy, fatty infiltration of the liver. Mildly prominent spleen, bilateral ovarian cyst. Hysterectomy. ASSESSMENT AND PLAN: 1. Abdominal pain. Abdominal pelvic CT was negative for any acute findings. She is having normal bowel movements although CT does show ovarian cysts, which could possibly be a cause of pain. We will provide her with medications for pain and antiemetics. Clear liquid diet. 2. Uncontrolled diabetes mellitus type 2. Her glucose was 409 on admit. We will do pattern blood glucoses and sliding scale insulin. Likely could have improvement on her abdominal pain once her glucoses are controlled. 3. Leukocytosis. She is afebrile. Urinalysis could possibly be a UTI put she has no symptoms. We will follow urine culture results. Her elevated white blood cell count at 13,000 could be inflammatory. 4. Hypertension. Continue home medications. Stable. 5. Hypothyroidism. Continue home medications. 6. History of deep venous thrombosis and pulmonary embolus. Continue Pradaxa. 7. Bipolar schizophrenia diagnosed in April, as she hears voices. Continue home medications. Dictated by GIN Napier for Beena Griffin MD cc: GIN Napier MD Malcolm R. Hendricks, MD [facility] MED[facility] CENTERIsamar
[2016-10-02] MEDS: GLUCOPHAGE XR PO SCH (21:12)
[2016-10-02] MEDS: TOPAMAX PO SCH (21:13)
[2016-10-02] MEDS: NEURONTIN PO SCH (21:13)
[2016-10-02] MEDS: MORPHINE IV PRN (21:31)
[2016-10-02] MEDS: HUMULIN R SUBQ SCH (21:35)
[2016-10-02] MEDS: LANTUS SUBQ SCH (23:00)
[2016-10-02] MEDS ORDERED: INSULIN PEN NEEDLES ONE (23:57)
[2016-10-03] MEDS ORDERED: PNEUMOVAX 23 IM ONE (05:24)
[2016-10-03] MEDS: NS 1,000 ML IV SCH (06:37)
[2016-10-03] MEDS: HUMULIN R SUBQ SCH ×4 (06:38→21:57)
[2016-10-03] MEDS: SYNTHROID PO SCH (06:39)
[2016-10-03 07:06] LABS: EOS# 0.14 X1000 (0.0-0.7); EOS% 1.4 % (0.0-10.0); MANUAL DIFF NEEDED? NO; MCV 80.9 FL (81-99)
[2016-10-03 07:15] LABS: BASO% 0.2 % (0.0-0.8); HEMATOCRIT 39.9 % (37.0-47.0); HEMOGLOBIN 13.6 g/dL (12.0-16.0); IMM GRAN# 0.02 X1000 (0.0-0.04); IMM GRAN% 0.2 % (0.0-0.5); LYMPH# 2.68 X1000 (1.2-3.4); LYMPH% 26.7 % (20.5-51.1); MCH 27.6 PG (27-31); MCHC 34.1 g/dL (33-37); MONO# 0.68 X1000 (0.11-0.59); MONO% 6.8 % (1.7-9.3); NEUT% 64.7 % (42.2-75.2); PLT 235 X1000 (130-400); RBC 4.93 XMIL (4.2-5.4)
[2016-10-03 07:39] LABS: AGAP 12; BUN 8 mg/dL (8-22); CALCIUM 8.4 mg/dL (8.8-10.2); CHLORIDE 101 mmol/L (98-107); CK PROFILE 21 U/L (24-173); COSMO 281; POTASSIUM 3.9 mmol/L (3.5-5.1); SODIUM 135 mmol/L (136-145); TCO2 22 mmol/L (25-35)
[2016-10-03] MEDS ORDERED: LEXAPRO PO SCH (09:00)
[2016-10-03] MEDS: PRADAXA PO SCH (09:06)
[2016-10-03] MEDS: ZYPREXA PO SCH (09:07)
[2016-10-03] MEDS: TOPAMAX PO SCH ×2 (09:07→21:57)
[2016-10-03] MEDS: ABILIFY PO SCH (09:07)
[2016-10-03] MEDS: LEXAPRO PO SCH (09:07)
[2016-10-03] MEDS: GLUCOPHAGE XR PO SCH ×2 (09:07→21:56)
[2016-10-03] MEDS: FERROUS SULFATE PO SCH ×3 (09:08→21:58)
[2016-10-03] MEDS: LIPITOR PO SCH (09:08)
[2016-10-03] MEDS: NORVASC PO SCH (09:08)
[2016-10-03] MEDS: PRINIVIL PO SCH (09:08)
[2016-10-03] MEDS: MORPHINE IV PRN (09:19)
--- NOTE | 2016-10-03 11:46 | PROGRESS NOTE ---
DATE: 10/03/2016 SUBJECTIVE: The patient states that she feels a lot better today. She states that her chest pain has resolved. No acute events noted overnight. OBJECTIVE: Vital Signs: Temperature 98 degrees, blood pressure 143/79, heart rate 83, respirations 27, and O2 saturations 97% on room air. General: This is a young female, lying in bed, in no acute distress. Head: Normocephalic, atraumatic. Heart: S1 and S2 , normal. Regular rate and rhythm. Lungs: Clear to auscultation bilaterally. No wheezes, no rales. No rhonchi. Abdomen: Positive bowel sounds. Soft. Nontender. Nondistended. Extremities : No edema. No cyanosis. No calf tenderness. Neurologic: The patient is alert oriented x3. LABORATORY DATA: White blood cell count 10, hemoglobin 13, hematocrit 39, platelets 235,000. Sodium 135, potassium 3.9, chloride 101, CO2 of 22, BUN 8, creatinine 0.7, glucose 316. ASSESSMENT AND PLAN: 1. Urinary tract infection. Continue on intravenous antibiotic therapy. A urine culture is pending. 2. Bilateral ovarian cysts. The patient is followed by Gynecology as an outpatient. 3. Uncontrolled insulin-dependent diabetes mellitus type 2. Continue on the current insulin regimen. 4. Hypothyroidism. Continue on Synthroid. 5. Fatty liver disease, aware. 6. History of cerebrovascular accident in 2011, aware. 7. Bipolar disorder and schizophrenia. Continue on Abilify. 8. History of pulmonary embolism and deep vein thrombosis. Aware. 9. Situational depression. Continue on Celexa. cc: Beena Griffin MD MTDD
[2016-10-03] MEDS: ROCEPHIN 1 GM/NS 1 GM/50 ML IVPB IV SCH (17:00)
[2016-10-03] MEDS: LANTUS SUBQ SCH (21:56)
[2016-10-03] MEDS: NEURONTIN PO SCH (21:57)
[2016-10-04] MEDS: HUMULIN R SUBQ SCH (06:18)
[2016-10-04 06:28] LABS: MANUAL DIFF NEEDED? NO
[2016-10-04 06:44] LABS: BASO% 0.2 % (0.0-0.8); EOS# 0.16 X1000 (0.0-0.7); EOS% 1.7 % (0.0-10.0); HEMATOCRIT 39.1 % (37.0-47.0); HEMOGLOBIN 13.2 g/dL (12.0-16.0); IMM GRAN# 0.02 X1000 (0.0-0.04); IMM GRAN% 0.2 % (0.0-0.5); LYMPH# 2.93 X1000 (1.2-3.4); LYMPH% 30.8 % (20.5-51.1); MCH 27.7 PG (27-31); MCHC 33.8 g/dL (33-37); MONO# 0.68 X1000 (0.11-0.59); MONO% 7.2 % (1.7-9.3); MPV 10.1 FL (7.4-10.4); NEUT% 59.9 % (42.2-75.2); PLT 226 X1000 (130-400); RBC 4.77 XMIL (4.2-5.4)
[2016-10-04] MEDS: SYNTHROID PO SCH (06:55)
[2016-10-04 07:06] LABS: AGAP 12; BUN 9 mg/dL (8-22); CALCIUM 8.7 mg/dL (8.8-10.2); CHLORIDE 105 mmol/L (98-107); COSMO 284; SODIUM 141 mmol/L (136-145); TCO2 24 mmol/L (25-35)
[2016-10-04 08:03] VITALS: BP 104/53
[2016-10-04] MEDS: ABILIFY PO SCH (10:53)
[2016-10-04] MEDS: PRADAXA PO SCH (10:54)
[2016-10-04] MEDS: GLUCOPHAGE XR PO SCH (10:54)
[2016-10-04] MEDS: ZYPREXA PO SCH (10:55)
[2016-10-04] MEDS: FERROUS SULFATE PO SCH (10:55)
[2016-10-04] MEDS: LIPITOR PO SCH (10:55)
[2016-10-04] MEDS: TOPAMAX PO SCH (10:56)
[2016-10-04] MEDS: LEXAPRO PO SCH (10:57)
[2016-10-04] MEDS: NORVASC PO SCH (11:04)
[2016-10-04] MEDS: PRINIVIL PO SCH (11:06)
--- NOTE | 2016-10-04 16:48 | DISCHARGE SUMMARY ---
ADMISSION DATE: 10/02/2016 DISCHARGE DATE: 10/04/2016 PRIMARY CARE PHYSICIAN: Vin Jones MD. FINAL DISCHARGE DIAGNOSES: 1. Urinary tract infection. 2. Atypical chest pain. 3. Bilateral ovarian cysts. 4. Hypothyroidism. 5. Fatty liver disease. 6. History of cerebrovascular accident. 7. Bipolar disorder. 8. Schizophrenia. 9. History of pulmonary embolism and deep vein thrombosis. 10. Situational depression. HOSPITAL COURSE: Ms. Tao is a 40-year-old female with a history of multiple medical problems who initially presented to the ER with lower abdominal pain and some chest pain. On admission, a CT of the abdomen and pelvis was done that revealed a moderately distended urinary bladder, bilateral ovarian cysts and fatty infiltration of the liver. The patient was also noted to have a urinary tract infection. The patient was started on IV fluids and IV antibiotic therapy. Ultimately the urine culture grew out mixed marleen. The patient's symptoms improved. The patient was bladder scanned after voiding and she was noted to have 50mL of urine in her bladder. The patient continued to improve clinically and was ultimately cleared for discharge home on 10/04/2016. DISCHARGE MEDICATIONS: 1. Augmentin 500/125, 1 tab oral twice a day for 5 days. 2. Metformin 1000 mg p.o. twice a day. 3. Synthroid 75 mcg oral daily. 4. Norvasc 5 mg p.o. daily. 5. Lisinopril 40 mg p.o. daily. 6. Lipitor 20 mg p.o. daily. 7. Ferrous sulfate 1 tab oral 3 times a day. 8. Topamax 50 mg p.o. twice a day. 9. Abilify 15 mg p.o. daily. 10. Lantus 70 units subcutaneous at bedtime. 11. Gabapentin 600 mg p.o. at bedtime. 12. Pradaxa 150 mg p.o. every morning. 13. Olanzapine 10 mg p.o. every morning. 14. [place] 5/325, 1 tab oral every 6 hours as needed p.r.n. 15. Lexapro 20 mg p.o. daily. DISCHARGE DIET: 1800 ADA diet. ACTIVITY: As tolerated. FOLLOWUP INSTRUCTIONS: The patient will need to follow up Dr. Vin Jones in 2 weeks. cc: Beena MD Vin Griffin MD [facility]
== END 2016-10-04 12:22 | disposition home or self-care (01) ==
LOC: SUPCPDRO → ED 12:56 → INTOOBSV 18:35 → EDIPHOLD 18:35 → 3N 19:47
PROVIDERS: ATTEND Internal Medicine

== ENCOUNTER 2019-05-07 19:52 | Observation (INO) ==
[2019-05-07] MEDS ORDERED: ASPIRIN PO ONE (20:02)
[2019-05-07 20:28] LABS: BASO# 0.04 X1000 (0.0-0.2); BASO% 0.5 % (0.0-0.8); EOS# 0.19 X1000 (0.0-0.7); EOS% 2.3 % (0.0-10.0); HEMATOCRIT 41.6 % (37.0-47.0); HEMOGLOBIN 13.6 g/dL (12.0-16.0); IMM GRAN# 0.03 X1000 (0.0-0.04); IMM GRAN% 0.4 % (0.0-0.5); LYMPH# 2.97 X1000 (1.2-3.4); LYMPH% 35.4 % (20.5-51.1); MCH 28.6 PG (27-31); MCHC 32.7 g/dL (33-37); MCV 87.4 FL (81-99); MONO# 0.65 X1000 (0.11-0.59); MONO% 7.7 % (1.7-9.3); MPV 10.2 FL (7.4-10.4); NEUT# 4.51 X1000 (1.4-6.5); NEUT% 53.7 % (42.2-75.2); PLT 247 X1000 (130-400); RBC 4.76 XMIL (4.2-5.4); WBC 8.39 X1000 (4.8-10.8)
[2019-05-07 20:30] LABS: INR 1.11; PROTIME 14.5 Seconds (11.0-16.0); PTT 32.6 Seconds (22.3-41.8)
--- NOTE | 2019-05-07 21:03 | Diag Imaging Result Doc PS360 ---
EXAM: CHEST-2 VIEWS INDICATION: CP TECHNIQUE: 2 views COMPARISON: 03/21/2017 FINDINGS: The lungs are grossly clear. There is no discrete pleural fluid collection or pneumothorax. The cardiomediastinal silhouette and central vasculature are grossly unremarkable. IMPRESSION: No evidence of acute pathology by plain radiograph. Electronically signed by Simeon Webb 05/07/2019 9:01 PM
[2019-05-07 21:05] LABS: ALB/GLOB RATIO 1.7; ALBUMIN 4.2 g/dL (3.5-5.0); CALCIUM 8.6 mg/dL (8.8-10.2); CREATININE 1.2 mg/dL (0.5-0.9); POTASSIUM 4.1 mmol/L (3.5-5.1); TOTAL BILIRUBIN 0.17 mg/dL (0.20-1.00); TOTAL PROTEIN 6.7 g/dL (6.3-8.3)
--- NOTE | 2019-05-07 21:54 | PROVIDER DOCUMENTATION ---
This chart was entered by Alaina Duke Scribe, acting as scribe for Iveth Terrell CRNP. HPI-Chest Pain - General Chief Complaint: Chest Pain Stated Complaint: CHEST PAIN/SOB/LEFT ARM PAIN Time Seen by Provider: 05/07/19 21:30 Source: patient Allergies/Adverse Reactions: Patient Allergies Allergy/AdvReac Type Severity Reaction Status Date / Time Iodinated Contrast Media Allergy DIZZINESS Verified 05/12/18 16:56 Home Medications: Home Medication List Medication Instructions Recorded Confirmed Last Taken Type Metformin HCl [Glumetza] 500 mg PO BID 11/30/12 05/07/19 04/26/18 History Levothyroxine [Synthroid] 88 microgm PO DAILY 12/08/14 05/07/19 04/26/18 History Amlodipine Besylate [Norvasc] 5 mg PO DAILY 08/28/15 05/07/19 04/26/18 History Atorvastatin Calcium [Lipitor] 40 mg PO HS 08/28/15 05/07/19 04/26/18 History Ferrous Sulfate 1 tab PO TID 08/28/15 05/07/19 04/26/18 History Lisinopril 40 mg PO DAILY 08/28/15 05/07/19 04/26/18 History Topiramate [Topamax] 100 mg PO TID 08/28/15 05/07/19 06/08/17 07:00 History 50 MG Insulin Glargine [Lantus] 80 unit SUBQ QHS 02/06/16 05/07/19 04/26/18 History Gabapentin 900 mg PO QHS 09/16/16 05/07/19 04/26/18 History Olanzapine 5 mg PO DAILY 09/16/16 05/07/19 04/26/18 History Prazosin [Minipress] 2 mg PO QHS 06/08/17 05/07/19 04/26/18 History Sitagliptin [Januvia] 100 mg PO DAILY 06/08/17 05/07/19 04/26/18 History Bupropion HCl [Bupropion Xl] 300 mg PO DAILY 05/07/19 05/07/19 Unknown History Olanzapine 20 mg PO QHS 05/07/19 05/07/19 Unknown History - History of Present Illness-CP Nature of Presenting Problem: pt is a 43 yr old female presenting with left upper chest pain x 1 day, pt reports pain onset 0600 and continued throughout the day, pt admits pain worsened approx 2hr [employer], pt admits heaviness, shortness of breath and nausea Location: reports: other (left upper chest) Chest Pain Radiation: reports: arms (left) Quality of Pain: reports: pressure (heavy) Severity in ED: moderate Onset/Duration: this morning (0600) Timing: still present, getting worse Context/Activities at Onset: reports: light activity Modifying Factors: improves with: nothing Associated Symptoms: reports: nausea, shortness of breath. denies: vomiting Nitro Today/Relief: no nitro taken today Aspirin Treatment Today: no aspirin today Prior Chest Pain/Cardiac Workup: reports: no prior chest pain, no prior cardiac workup Similar Symptoms Previously?: No Recently Seen Here or By Another Healthcare Provider: No Review of Systems - Adult - REVIEW OF SYSTEMS - ADULT Constitutional: denies: chills, fever Eyes: reports: no symptoms reported Ears, Nose, Mouth & Throat: reports: no symptoms reported Cardiovascular: reports: chest pain. denies: palpitations, syncope Respiratory: reports: shortness of breath. denies: cough Gastrointestinal: reports: nausea. denies: abdominal pain, vomiting Genitourinary: reports: no symptoms reported Musculoskeletal: reports: no symptoms reported Integumentary: reports: no symptoms reported Neurological: denies: dizziness/vertigo, headache/migraines Psychiatric: reports: no symptoms reported Endocrine: reports: no symptoms reported Hematologic/Lymphatic: reports: no symptoms reported Allergic/Immunologic: reports: no symptoms reported All Other Systems: Reviewed and Negative Past History - Adult - PAST MEDICAL HISTORY-ADULT Review of Records: reports: Old Records Reviewed, Nursing Assessment Review, Medications Reviewed, Social history reviewed & non-contributory. Major Childhood Illnesses: reports: denies history Cardiovascular: reports: blood clots (with PE's), HTN, hyperlipidemia Respiratory: reports: denies history Gastrointestinal: reports: denies history Obstetrical/Gynecological: reports: denies history Genitourinary: reports: denies history Musculoskeletal: reports: denies history Neurological: reports: CVA, headaches/migraines, TIA Psychiatric: reports: anxiety, bipolar, depression Endocrine/Immune: reports: anemia, Diabetes, thyroid disorder Other Conditions: reports: denies history, MRSA - PRIOR SURGERIES/PROCEDURES Surgical/Procedure History: reports: cholecystectomy, hysterectomy, BTL, C- section, other (ectopic pregnancies) - IMMUNIZATION STATUS Childhood Immunizations: See Nurse Assessment Flu Vaccine: See Nurse Assessment - FAMILY HISTORY Family History: reviewed, not pertinent - SOCIAL HISTORY Living Situation: family Physical Exam-General - PHYSICAL EXAM-ADULT Initial Vital Signs Reviewed: Yes - CONSTITUTIONAL General Appearance: appears well, alert, no apparent distress - EYES Eyes: PERRL/EOMI - HEAD, EARS, NOSE, MOUTH & THROAT HENMT: normocephalic/atraumatic, moist mucous membranes, normal ENT inspection - NECK Neck: non-tender, full range of motion, supple, normal inspection - RESPIRATORY Respiratory: chest non-tender, lungs clear, normal breath sounds - CARDIOVASCULAR Cardiovascular: normal peripheral pulses, regular rate, rhythm, no edema - GASTROINTESTINAL (ABDOMEN) Abdominal Exam: normal bowel sounds, non tender, soft - LYMPHATIC Lymphatic: no adenopathy - MUSCULOSKELETAL Back Exam: normal inspection, no CVA tenderness, no vertebral tenderness Extremity: normal range of motion, non-tender, normal gait, normal inspection - SKIN Integumentary: normal color, normal turgor, warm/dry - NEUROLOGIC Neurologic: grossly normal, no motor/sensory deficits - PSYCHIATRIC Psych/Mental Status: normal mood/affect, normal thought content, normal thought process, oriented x 3 - HEART Score HEART Score: History: Moderately Suspicious HEART Score: ECG: Normal HEART Score: Age: < or = 45 Years HEART Score: Risk Factors for Atherosclerotic Disease: > or = 3 Risk Factors or History of Atherosclerotic Disease HEART Score: Troponin: < or = Normal Limit Total HEART Score:: 3 Progress - PLAN OF CARE/RESULTS Progress/Plan/Lab Results: Vital Signs - 8 hr 05/07/19 19:55 Temperature 99.2 F Pulse Rate 77 Respiratory Rate 20 Blood Pressure 115/79 O2 Sat by Pulse Oximetry 98 Laboratory Results - last 24 hr 05/07/19 05/07/19 05/07/19 20:08 20:08 20:08 WBC 8.39 RBC 4.76 Hgb 13.6 Hct 41.6 MCV 87.4 MCH 28.6 MCHC 32.7 L RDW Std Deviation 13.0 Plt Count 247 MPV 10.2 Immature Gran % (Auto) 0.4 Neut % (Auto) 53.7 Lymph % (Auto) 35.4 [place] % (Auto) 7.7 Eos % (Auto) 2.3 Baso % (Auto) 0.5 Immature Gran # (Auto) 0.03 Neut # (Auto) 4.51 Lymph # (Auto) 2.97 [place] # (Auto) 0.65 H Eos # (Auto) 0.19 Baso # (Auto) 0.04 PT INR PTT (Actin FS) Sodium 142 Potassium 4.1 Chloride 106 Carbon Dioxide 23 L Anion Gap 13 BUN 16 Creatinine 1.2 H Estimated GFR/1.73 m2 50 BUN/Creatinine Ratio 13 Glucose 196 H Calculated Osmolality 290 Calcium 8.6 L Total Bilirubin 0.17 L AST 10 ALT 9 L Alkaline Phosphatase 89 Creatine Kinase 44 Troponin T High Sens Unk-B-Imrdksfexto Pept 207 H Total Protein 6.7 Albumin 4.2 Globulin 2.5 Albumin/Globulin Ratio 1.7 05/07/19 05/07/19 05/07/19 20:08 20:08 21:52 WBC RBC Hgb Hct MCV MCH MCHC RDW Std Deviation Plt Count MPV Immature Gran % (Auto) Neut % (Auto) Lymph % (Auto) [place] % (Auto) Eos % (Auto) Baso % (Auto) Immature Gran # (Auto) Neut # (Auto) Lymph # (Auto) [place] # (Auto) Eos # (Auto) Baso # (Auto) PT 14.5 INR 1.11 PTT (Actin FS) 32.6 Sodium Potassium Chloride Carbon Dioxide Anion Gap BUN Creatinine Estimated GFR/1.73 m2 BUN/Creatinine Ratio Glucose Calculated Osmolality Calcium Total Bilirubin AST ALT Alkaline Phosphatase Creatine Kinase 41 Troponin T High Sens 11 Jqf-C-Wgivjvpguvm Pept Total Protein Albumin Globulin Albumin/Globulin Ratio 05/07/19 21:52 WBC RBC Hgb Hct MCV MCH MCHC RDW Std Deviation Plt Count MPV Immature Gran % (Auto) Neut % (Auto) Lymph % (Auto) [place] % (Auto) Eos % (Auto) Baso % (Auto) Immature Gran # (Auto) Neut # (Auto) Lymph # (Auto) [place] # (Auto) Eos # (Auto) Baso # (Auto) PT INR PTT (Actin FS) Sodium Potassium Chloride Carbon Dioxide Anion Gap BUN Creatinine Estimated GFR/1.73 m2 BUN/Creatinine Ratio Glucose Calculated Osmolality Calcium Total Bilirubin AST ALT Alkaline Phosphatase Creatine Kinase Troponin T High Sens 10 Pud-X-Rggbnfdyalo Pept Total Protein Albumin Globulin Albumin/Globulin Ratio Orders Category Date Time Status Cardiac Monitoring DIRECTED Care 05/07/19 20:02 Active Oxygen Therapy- ED Nursing DIRECTED Care 05/07/19 20:02 Active Saline Loc NOW Care 05/07/19 20:02 Active CHEST-2 VIEWS [RAD] Stat Exams 05/07/19 20:02 Completed CBC WITH ELECTRONIC DIFF [HEME] Stat Lab 05/07/19 20:08 Completed CK PROFILE [SP CHEM] Stat Lab 05/07/19 20:08 Completed CK PROFILE [SP CHEM] Stat Lab 05/07/19 21:52 Completed COMPREHENSIVE METABOLIC PANEL [CHEM] Stat Lab 05/07/19 20:08 Completed D-DIMER [COAG] Stat Lab 05/07/19 20:08 Received PRO B-NATRIURETIC PEPTIDE Stat Lab 05/07/19 20:08 Completed PROTIME WITH INR [COAG] Stat Lab 05/07/19 20:08 Completed PTT [COAG] Stat Lab 05/07/19 20:08 Completed TROPONIN T HIGH SENSITIVITY Stat Lab 05/07/19 20:08 Completed TROPONIN T HIGH SENSITIVITY Stat Lab 05/07/19 21:52 Completed 0.9% Sodium Chloride Inj [Ns] 1,000 ml Med 05/07/19 22:46 Active IV 125 mls/hr Aspirin Med 05/07/19 20:02 Discontinued 325 mg PO NOW ONE Nitroglycerin Med 05/07/19 22:46 Discontinued 0.5 inch TOP NOW ONE CP/SOB/Palp >45 yrs of Age Stat Oth 05/07/19 20:02 Ordered EKG [EKG] Stat Ther 05/07/19 20:02 Ordered EKG [EKG] Stat Ther 05/07/19 21:38 Ordered Result Diagrams: 05/07/19 20:08 05/07/19 20:08 - EKG 1 Time of EKG reading by physician:: 19:57 EKG Read and Signed by:: Gary Delgado EKG Interpretation (*Must complete 3 of following elements*): Normal Rate: 76 Rhythm: nsr [place]: normal QRS: normal [place] Interval: normal ST Wave: normal 2 Time of EKG reading by physician:: 21:56 EKG Read and Signed by:: Gary Delgado EKG Interpretation (*Must complete 3 of following elements*): Normal Rate: 74 Rhythm: nsr [place]: normal QRS: normal [place] Interval: normal ST Wave: normal - XRAY 1 XRAY Study: Chest Impression: Normal ( Signed EXAM: CHEST-2 VIEWS INDICATION: CP TECHNIQUE: 2 views COMPARISON: 03/21/2017 FINDINGS: The lungs are grossly clear. There is no discrete pleural fluid collection or pneumothorax. The cardiomediastinal silhouette and central vasculature are grossly unremarkable. IMPRESSION: No evidence of acute pathology by plain radiograph. Electronically signed by Simeon Webb 05/07/2019 9:01 PM 05/07/192100 Interpreting Physician: Simeon Webb MD Dictated Date/Time: 05/07/192099 cc: Gary Delgado MD; Vin Jones MD) - CONSULTS/PCP/HOSPITALIST Notification #1 *Consult/PCP/Hospitalist*: Dr. Lowry Time Discussed: 22:59 Reason/Comments: Admission Consult Disposition: Will see in ED, Admit Departure - Departure Date of Disposition Decision: 05/07/19 Time of Disposition Decision: 23:00 DIAGNOSIS: Chest pain Qualifiers: Chest pain type: unspecified Qualified Code(s): R07.9 - Chest pain, unspecified Hyperglycemia due to type 2 diabetes mellitus Qualifiers: Diabetes mellitus care home insulin use: unspecified care home insulin use status Qualified Code(s): E11.65 - Type 2 diabetes mellitus with hyperglycemia Dyspnea Qualifiers: Dyspnea type: unspecified Qualified Code(s): R06.00 - Dyspnea, unspecified Disposition: ADMITTED INPATIENT 09 Certified Medical Emergency: Emergent Condition: Stable Referrals and Follow-Ups: Vin Jones MD [Primary Care Provider] - - Critical Care Note This patient required my direct & personal management of CC.: No Attestation - Physician/ MARIA A Attestation Patient care was provided by Advanced Practice Provider:: Yes Advanced Practice Provider:: Iveth Terrell Advanced Practice Provider documentation review:: The Mid-level provider documentation, treatment plan and medical decision making was reviewed by the ph ysician who agrees with all treatment and medical decision making by the MLP. The physician spent face to face time with patient:: No Advanced Practice Provider documentation review:: Supervising physician onsite and consulted in the evaluation and care of this patient. The physician did not have a face to face encounter with the patient. This chart was documented by the indicated scribe, (Alaina Duke Scribe) and accurately reflects the services I performed and decisions made by me, Iveth Terrell CRNP, as attested by the provider's signature.
[2019-05-07] MEDS ORDERED: NS 1,000 ML IV ONE (22:46)
[2019-05-07] MEDS ORDERED: NITROGLYCERIN TOP ONE (22:46)
[2019-05-08] MEDS ORDERED: NITROGLYCERIN SL PRN (00:51)
[2019-05-08] MEDS ORDERED: ZOFRAN IV PRN (00:51)
[2019-05-08] MEDS ORDERED: TYLENOL PO PRN (00:51)
[2019-05-08 00:55] LABS: HEMOGLOBIN A1C 6.4 % (4.8-6.0)
--- NOTE | 2019-05-08 02:33 | HISTORY AND PHYSICAL ---
ADDENDUM: The patient came in with chest pain left-sided. Workup in the ER was negative except creatinine was up a little bit, but she is a vascular patient who has vascular. She has had a CVA in the past, really unclear why she has a CVA, but she will be placed in observation for chest pain observation and monitored. We will get echocardiogram, stress test and serial enzymes. cc: Justin Lowry MD
--- NOTE | 2019-05-08 03:59 | EKG Report ---
Test Performed on : 05/07/2019 7:57:34 PM Test Reason : CP Blood Pressure : / mmHG Vent. Rate : 076 BPM Atrial Rate : 076 BPM P-R Int : 158 ms QRS Dur : 084 ms QT Int : 402 ms P-R-T Axes : 046 023 046 degrees QTc Int : 452 ms Normal sinus rhythm. Normal ECG When compared with ECG of 21-MAR-2017 18:24, No significant change was found Unconfirmed Result
--- NOTE | 2019-05-08 03:59 | EKG Report ---
Test Performed on : 05/07/2019 9:56:29 PM Test Reason : CP Blood Pressure : / mmHG Vent. Rate : 074 BPM Atrial Rate : 074 BPM P-R Int : 158 ms QRS Dur : 084 ms QT Int : 412 ms P-R-T Axes : 051 033 049 degrees QTc Int : 457 ms Normal sinus rhythm. Normal ECG When compared with ECG of 07-MAY-2019 19:57, (Unconfirmed) No significant change was found Unconfirmed Result
[2019-05-08 04:33] LABS: AGAP 10; BUN 17 mg/dL (8-22); CALCIUM 8.1 mg/dL (8.8-10.2); CHLORIDE 108 mmol/L (98-107); COSMO 286; CREATININE 0.9 mg/dL (0.5-0.9); ESTIMATED GFR > 60; GLUCOSE 151 mg/dL (70-104); POTASSIUM 3.6 mmol/L (3.5-5.1); SODIUM 141 mmol/L (136-145); TCO2 23 mmol/L (25-35)
[2019-05-08] MEDS: HUMALOG SUBQ SCH ×2 (06:36→13:16)
--- NOTE | 2019-05-08 06:42 | HISTORY AND PHYSICAL ---
CHIEF COMPLAINT: Chest pain. HISTORY OF PRESENT ILLNESS: This is a 43-year-old female who presents with left upper chest pain that radiated into her left arm since 6 a.m. yesterday morning and continued throughout the day. She stated the pain worsened around 2 hours prior to arrival. She states that it was a heaviness with shortness of breath and nausea. She denied any vomiting. She states that she did not break into a sweat. The shortness of breath was worse with light activity, as was the pain. Nothing really made it better. On arrival she was given aspirin and nitroglycerin. She is now pain free. She has a past medical history of diabetes mellitus type 2, now insulin-dependent, hypertension, PE with DVT and uses chronic Pradaxa, hypothyroidism, depression, CVA in 2011, migraine, and bipolar and schizophrenia. She does occasionally have auditory hallucinations. She is not having any at this time. Her creatinine was mildly elevated in the emergency room. Her high sensitivity troponin was negative x2 sets. However, she does have a high HEART Score and multiple risk factors. She will be admitted for a stress test tomorrow morning. PAST MEDICAL HISTORY: See HPI. PREVIOUS SURGICAL HISTORY: Partial hysterectomy, , tonsillectomy, and cholecystectomy. SOCIAL HISTORY: No alcohol, tobacco or illicit drugs. Lives home alone with her sister staying with her sometimes. FAMILY HISTORY: Positive for diabetes mellitus, hypertension, coronary artery disease, and DVTs. ALLERGIES: Oral contrast. HOME MEDICATIONS: Pradaxa 150 mg p.o. daily, bupropion 300 mg p.o. daily, Lantus 80 units subcutaneous at bedtime, metformin 500 mg p.o. b.i.d., Januvia 100 mg p.o. daily, Norvasc 5 mg p.o. daily, Lipitor 40 mg p.o. at bedtime, ferrous sulfate 325, one p.o. t.i.d., Neurontin 900 mg p.o. at bedtime, levothyroxine 88 mcg p.o. daily, lisinopril 40 mg p.o. daily, olanzapine 5 mg p.o. daily and 20 mg p.o. at bedtime, prazosin 10 mg p.o. at bedtime, topiramate 100 mg p.o. b.i.d. REVIEW OF SYSTEMS: A 14-point review of systems was conducted with the patient. Pertinent positives were listed above in the HPI. All other systems reviewed and found to be negative. PHYSICAL EXAMINATION: VITAL SIGNS: Temperature 99.2, pulse 71, respirations 18, blood pressure 110/78, and oxygen saturation is 98% on room air. GENERAL: A pleasant 43-year-old female lying in the ER stretcher. She is accompanied by her mother. She is alert and oriented x3. Her mother is very pleasant. HEENT: The head is atraumatic an normocephalic. The pupils are equal, round, and reactive to light. Extraocular eye movement is intact. The sclerae are nonicteric. The conjunctivae are pink. The oral mucosa is dry. NECK: Supple. No JVD. No thyromegaly. The trachea is midline. No cervical lymphadenopathy. CARDIAC: S1, S2 appreciated. No murmurs, gallops, or rubs. LUNGS: Clear to auscultation bilaterally. No rhonchi, wheezes, or rales. Symmetric rise and fall with respirations. ABDOMEN: Soft, nondistended, and nontender. Bowel sounds present in all four quadrants. Normoactive. No pulsatile masses. No organomegaly. EXTREMITIES: No cyanosis, clubbing, or edema. 1+ pedal pulses bilaterally. GENITOURINARY: No bladder distention. Patient voids. Otherwise deferred. NEUROLOGICAL: Alert and oriented x3. No focal motor deficits. Otherwise nonfocal examination. DIAGNOSTIC DATA: Chest x-ray, no acute pathology. LABORATORY DATA: CBC within normal limits. Coags within normal limits. D-dimer is negative. Sodium 142, potassium 4.1, chloride 106, carbon dioxide 23, BUN 16, creatinine 1.2, glucose 196. Troponin negative x2 sets, as well as the CKs being negative. ASSESSMENT: 1. Chest pain, rule out acute myocardial infarction. 2. Acute kidney injury. 3. Fluid/volume depletion. 4. Diabetes mellitus type 2, now insulin dependent, with hyperglycemia. 5. Hypertension. 6. Hyperlipidemia. PLAN: Continue all home medications. We will also continue her Pradaxa for previous DVT. Continue Lipitor. Check a lipid profile. Hold her lisinopril for 24 hours while she is rehydrated. We will order a stress test tomorrow morning and repeat EKG. Trend cardiac enzymes. Further recommendations based on clinical course. Dictated by GIN Dangelo for Justin Lowry MD cc: GIN Dangelo MD
[2019-05-08] MEDS ORDERED: PRILOSEC PO SCH (07:00)
[2019-05-08] MEDS ORDERED: SYNTHROID PO SCH (07:00)
--- NOTE | 2019-05-08 08:30 | EKG Report ---
Test Performed on : 05/08/2019 07:59:55 AM Test Reason : cp Blood Pressure : / mmHG Vent. Rate : 071 BPM Atrial Rate : 071 BPM P-R Int : 160 ms QRS Dur : 082 ms QT Int : 430 ms P-R-T Axes : 067 066 069 degrees QTc Int : 467 ms Normal sinus rhythm. Normal ECG When compared with ECG of 07-MAY-2019 21:56, (Unconfirmed) No significant change was found Confirmed by Rojelio Rosales MD ([id number]) on 05/09/2019 4:34:26 PM
[2019-05-08] MEDS ORDERED: LEXISCAN ONE (08:32)
[2019-05-08] MEDS ORDERED: NORVASC PO SCH (09:00)
[2019-05-08] MEDS ORDERED: ZYPREXA PO SCH ×2 (09:00→21:00)
[2019-05-08] MEDS ORDERED: PRADAXA PO SCH (09:00)
[2019-05-08] MEDS: FERROUS SULFATE PO SCH ×2 (11:50→13:17)
[2019-05-08] MEDS: TOPAMAX PO SCH ×2 (11:51→13:17)
[2019-05-08 13:48] LABS: UR AMPHETAMINES QUAL NONE DETECTED (NONE DETECT); UR BARBITUATES QUAL NONE DETECTED (NONE DETECT); UR BENZODIAZEPIN QUAL NONE DETECTED (NONE DETECT); UR CANNABINOIDS QUAL NONE DETECTED (NONE DETECT); UR COCAINE QUAL NONE DETECTED (NONE DETECT); UR METHADONE QUAL NONE DETECTED (NONE DETECT); UR OPIATES QUAL NONE DETECTED (NONE DETECT); UR OXYCODONE QUAL NONE DETECTED (NONE DETECT); UR PCP QUAL NONE DETECTED (NONE DETECT)
[2019-05-08 15:03] VITALS: BP 133/76
--- NOTE | 2019-05-08 15:44 | Diag Imaging Result Document ---
PROCEDURE NAME: MYOCARDIAL PERF SCAN, STR/REST - 05/08/2019 SUMMARY: The patient was administered 11.7 mCi of technetium-99m sestamibi, after which resting cardiac images were obtained. The patient subsequently stressed using a walking Lexiscan protocol. The patient was administered Lexiscan 0.4 mg intravenously, after which the heart rate increased from 99 beats per minute to 114 beats per minute. The blood pressure went from 122/67 to 90/60. With Lexiscan, the patient reported transient left-sided chest discomfort of moderate intensity atypical for myocardial ischemia. Following the administration of Lexiscan, the patient was administered 35.5 mCi of technetium 99-m sestamibi after which gated stress cardiac images were obtained. Baseline ECG demonstrated sinus rhythm and was within normal limits. With Lexiscan there were no diagnostic ST-segment changes. SPECT images were reconstructed in the short, horizontal long, and vertical long axis. Review of these images demonstrated no scintigraphic evidence of inducible myocardial ischemia or prior infarct. Gated images demonstrate a calculated left ventricular ejection fraction of 74% with symmetrical wall motion/thickening. CONCLUSIONS: 1. Adequate response to Lexiscan. 2. Clinically the patient reported transient atypical chest pain. 3. Electrocardiographically negative for Lexiscan induced myocardial ischemia. 4. Lexiscan sestamibi images demonstrate no scintigraphic evidence of inducible myocardial ischemia. Normal left ventricular systolic function demonstrated. cc: MD Dioni Fernandez CRNP
--- NOTE | 2019-05-08 19:01 | ECHO REPORT ---
ORDER DATE: 05/08/2019 MEASUREMENTS: Septal thickness 1.1, left ventricular internal diameter in diastole 4.2, posterior wall thickness 0.9. Left ventricular internal diameter in systole 2.1, left atrium 2.7, aortic root 3.7. SUMMARY: 1. Fair quality study. 2. Aortic valve is trileaflet and opens normally on 2-dimensional images. The peak gradient across aortic valve is less than 5 mmHg. Mitral, tricuspid and pulmonic valves are without evidence of structural abnormality with trace mitral regurgitation and trace pulmonic insufficiency. The aortic root is normal size. 3. Normal left ventricular dimension is demonstrated. Estimated left ejection fraction is approximately 60%. No regional wall motion abnormality is evident. Left atrium, right atrium, right ventricle are normal size with grossly preserved right ventricular systolic function. 4. Tiny posterior pericardial effusion is demonstrated. 5. Appearance of inferior vena cava suggests normal central venous pressure. 6. Intravenous agitated saline contrast study performed negative for evidence of [id number] intracardiac shunting. cc: MD Justin Fernandez MD
[2019-05-08] MEDS ORDERED: MINIPRESS PO SCH (21:00)
[2019-05-08] MEDS ORDERED: LIPITOR PO SCH (21:00)
[2019-05-08] MEDS ORDERED: NEURONTIN PO SCH (21:00)
[2019-05-09] MEDS ORDERED: PRINIVIL PO SCH (09:00)
--- NOTE | 2019-05-09 14:19 | DISCHARGE SUMMARY ---
ADMISSION DATE: 05/08/2019 DISCHARGE DATE: 05/08/2019 DISCHARGE DIAGNOSES: 1. Chest pain. Acute myocardial infarction ruled out. 2. Acute kidney injury, resolved. 3. Diabetes mellitus type 2 4. Hypertension. 5. Hyperlipidemia CONSULTATIONS: None. PROCEDURES: 1. Chest x-ray done on admission showed no evidence of acute pathology by plain radiograph. 2. Echocardiogram Doppler showed ejection fraction 60% with vena cava suggesting normal central venous pressure. Intravenous agitated saline contrast study performed and negative for evidence of [id number] intracardiac shunting. No grossly valvular abnormalities noted. 3. Myocardial perfusion scan nuclear medicine showed adequate response to the Lexiscan. They did not demonstrate any scintigraphic evidence of inducible myocardial ischemia. HOSPITAL COURSE: In brief, this is a 43-year-old male with past medical history of diabetes, hypertension, hyperlipidemia who presented to the emergency department complaining of chest pain and because of risk factors, she was admitted to the hospital. we ordered tests as mentioned above. Because all the workup returned negative. She was discharged home to self-care. Actually symptomatically, she was not complaining of any chest pain at all. She is going to be seen by her primary care physician in a week. DISCHARGE PHYSICAL EXAMINATION: Vital signs: Temperature 98.6 degrees, heart rate 74, respiratory rate 16, blood pressure 133/76, O2 saturation 99% on room air. General: This is a 43- year-old female lying in bed, in no acute distress. Cardiovascular: S1, S2 heard. No murmurs, gallops, or rubs. Regular rate and rhythm. Respiratory: Clear bilaterally to auscultation. No work of breathing or using accessory muscles. Abdomen: Soft, nontender to palpation. Bowel sounds present. No organomegaly. Extremities: No clubbing, cyanosis, or edema. Peripheral pulses present in both legs. Neurologic: The patient alert oriented x3. Moves 4 extremities. DISCHARGE DISPOSITION: Home to self-care. LIST OF MEDICATIONS: We are not going to make any changes to her current treatment. FOLLOWUP: Follow up with primary care physician in a week. cc: Tam Conde MD
== END 2019-05-08 17:12 | disposition home or self-care (01) ==
LOC: EDIPHOLD 19:52 → ED 19:52 → SUATTDRO 05-08 02:39 → 4N 05-08 06:30
PROVIDERS: ATTEND Internal Medicine